=== PATIENT | male | born 1970 | race Caucasian/White ===

== ENCOUNTER → 2021-08-07 09:49 | Outpatient (BNVA) | payer OTHER, SELFPAY | PROVIDERS: PCP Internal Medicine; Visit Provider Psychiatry & Neurology Neurology | DX: G43.909 Migraine, unspecified, not intractable, without status migrainosus (principal); G24.9 Dystonia, unspecified | CPT/HCPCS: 64642; J0585 ==

== ENCOUNTER → 2022-01-17 08:54 | Outpatient (BNVA) | payer OTHER, SELFPAY | PROVIDERS: PCP Family Medicine; Visit Provider Psychiatry & Neurology Neurology | DX: G24.9 Dystonia, unspecified (principal); G43.909 Migraine, unspecified, not intractable, without status migrainosus | CPT/HCPCS: 64642; J0585 ==

== ENCOUNTER → 2022-07-11 15:08 | Outpatient (BNVA) | payer OTHER, SELFPAY | PROVIDERS: PCP Family Medicine; Visit Provider Psychiatry & Neurology Neurology | DX: G43.909 Migraine, unspecified, not intractable, without status migrainosus (principal); G24.9 Dystonia, unspecified | CPT/HCPCS: 64642; J0585 ==

== ENCOUNTER 2022-12-24 10:22 | Outpatient (AMB) | payer OTHER, SELFPAY ==
[2022-12-24 10:25] VITALS: BP 116/72; PULSE 62; O2SAT 99; BMI 23.8
--- NOTE | 2022-12-24 10:25 | A.OFFVIS_ITS ---
Intake Vital Signs 12/24/22 10:25 Height 5 ft 9 in Weight 161 lb BMI 23.8 BP 116/72 Blood Pressure Location Rt brachial Position Sitting Pulse 62 Pulse Source Pulse Oximeter Pulse Oximetry (%) 99 Oxygen Delivery Method Room Air Intake Visit Reasons: Botox-CONFIRMED Intake Note: Pt presents to the office today for a botox injection. Pt states the botox has been helping him. Allergies erythromycin base Allergy (Severe, Verified 12/24/22 10:26) Anaphylaxis Medication List - Last Reconciled 12/24/22 by Jackeline England MD famotidine 20 mg PO DAILY fluticasone propionate 50 mcg/actuation 1 spray intranasal DAILY gabapentin 300 mg PO BEDTIME onabotulinumtoxinA (Botox) 100 units IM [id number] oxybutynin chloride ER 5 mg PO BEDTIME pantoprazole 40 mg PO DAILY sumatriptan succinate 100 mg PO ONCE PRN topiramate 1 tab qam and 2 tabs qhs orally; HPI HPI Comments History of Present Illness Details ? 52y/o male comes for follow up of migraines and treatment of dystonia with botox.He reports increase migraines since his travel to [facility] ??? Side effects including pain , injection site reaction , increased weakness etc were explained in detail. ??? Botulinum toxin type A 100 units C 8265C4 exp was diluted with 2 cc of normal saline . ??? Muscles injected ??? Right brachioradialis 12.5 units ??? Right extensor carpi radialis 37.5 units ??? Right extensor carpi ulnaris 25 units ??? Total used - 75 ??? Discarded- 25 units PFS Surgical History H/O colonoscopy History of cataract surgery Social History Alcohol intake: current Alcohol intake frequency: holidays/special occasions only Patient Tobacco Use Status: Never used Tobacco Physical Exam Vital Signs: Last Vital Signs Pulse 62 12/24/22 10:25 BP 116/72 12/24/22 10:25 Pulse Ox 99 12/24/22 10:25 Oxygen Delivery Method Room Air 12/24/22 10:25 BMI result Body Mass Index 23.8 Const General: cooperative, healthy appearing, comfortable and no acute distress Nutritional Appearance: average body habitus Orientation/consciousness: patient oriented x3 Limitations: no limitations Neuro General: patient oriented x3, gait normal, tone normal, moves all extremities and no focal motor deficits Cranial nerves: Yes Facial sensation intact/muscles of mastication intact, Yes Bilaterally intact EOM present and Yes Normal facial strength present Motor exam (neuro): 5/5 motor strength present throughout Office Procedures Botulinum toxin Injection 33724 - Extr 1-4 Procedure code (CPT) selection complete Office Meds onabotulinumtoxinA 100 unit solution for injection Performing Provider: Jackeline England MD Performing Location: [facility] [place] [facility] Administered by: Jackeline England MD on 12/24/22 11:11 Dose Route Admin Location Dispensed Lot Number Expiration Date [facility] Director Utilization Management 75 unit IM 100 units [id number] 02/20/25 6278-6780-64 [employer]ER[employer]/BOTOX Comments: see hpi Assessment & Plan Assessment & Plan (1) Dystonia: Code(s): G24.9 - Dystonia, unspecified (2) Migraine: Code(s): G43.909 - Migraine, unspecified, not intractable, without status migrainosus Plan Patient tolerated the procedure well He will call with any side effects gabapentin 600mg qhs Orders: Orders AMB Botulinum toxin Injection Today G24.9 - Dystonia, unspecified Coding Level of Care Code Est Pt Level 1 (90139) Diagnoses Dystonia G24.9 Migraine G43.909 CPT Codes Botox Injection - Botox 5: 37220 - Extr 1-4 ([id number])
== END 2022-12-24 10:47 | disposition home or self-care (01) ==
PROVIDERS: Visit Provider Psychiatry & Neurology Neurology
DX: G24.9 Dystonia, unspecified (principal)
CPT/HCPCS: 64642

== ENCOUNTER → 2022-12-24 10:22 | Outpatient (BNVA) | payer OTHER, SELFPAY | PROVIDERS: Visit Provider Psychiatry & Neurology Neurology | DX: G24.8 Other dystonia (principal); G43.909 Migraine, unspecified, not intractable, without status migrainosus | CPT/HCPCS: 64642; 99211; J0585 ==

== ENCOUNTER 2023-06-03 08:33 | Outpatient (AMB) | payer OTHER, SELFPAY ==
--- NOTE | 2023-06-03 08:46 | A.OFFVIS_ITS ---
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 53y/o male comes for follow up of migraines and treatment of dystonia with botox.He reports increase migraines since his travel to [facility] ??? Side effects including pain , injection site reaction , increased weakness etc were explained in detail. ??? Botulinum toxin type A 100 units C 8612C4 exp was diluted with 2 cc of normal saline . ??? Muscles injected ??? Right brachioradialis 12.5 units ??? Right extensor carpi radialis 37.5 units ??? Right extensor carpi ulnaris 25 units ??? Total used - 75 ??? Discarded- 25 units PFSH Surgical History H/O colonoscopy History of cataract surgery Social History Alcohol intake: current Alcohol intake frequency: holidays/special occasions only Patient Tobacco Use Status: Never used Tobacco Physical Exam Vital Signs: Last Vital Signs Pulse 66 06/03/23 08:47 Resp 16 06/03/23 08:47 Pulse Ox 99 06/03/23 08:47 Oxygen Delivery Method Room Air 06/03/23 08:47 Const General: cooperative, healthy appearing, comfortable and no acute distress Nutritional Appearance: average body habitus Orientation/consciousness: patient oriented x3 Limitations: no limitations Neuro General: patient oriented x3, gait normal, tone normal, moves all extremities and no focal motor deficits Cranial nerves: Yes Facial sensation intact/muscles of mastication intact, Yes Bilaterally intact EOM present and Yes Normal facial strength present Motor exam (neuro): 5/5 motor strength present throughout Office Procedures Botulinum toxin Injection 85595 - Extr 1-4 Procedure code (CPT) selection complete Office Meds onabotulinumtoxinA 100 unit solution for injection Performing Provider: Jackeline England MD [place] [facility] [place] [facility] Administered by: Jackeline England MD on 06/03/23 09:12 Dose Route Admin Location Dispensed Lot Number Expiration Date [facility] Spiritual Counselor 75 unit IM 100 units [id number] 06/21/25 5670-6131-52 [employer]ERGAN/BOTOX Comments: see HPI Assessment & Plan Assessment & Plan (1) Dystonia: Code(s): G24.9 - Dystonia, unspecified (2) Migraine: Code(s): G43.909 - Migraine, unspecified, not intractable, without status migrainosus Plan Patient tolerated the procedure well He will call with any side effects gabapentin 600mg qhs suggested magnesium 400mg qhs and riboflavin 400mg qam Orders: Orders AMB Botulinum toxin Injection Today G24.9 - Dystonia, unspecified Coding Level of Care Code Est Pt Level 1 (73224) Diagnoses Dystonia G24.9 Migraine G43.909 CPT Codes Botox Injection - Botox 5: 51773 - Extr 1-4 ([id number])
[2023-06-03 08:47] VITALS: PULSE 66; RESP 16; O2SAT 99
== END 2023-06-03 09:22 | disposition home or self-care (01) ==
PROVIDERS: PCP Family Medicine; Visit Provider Psychiatry & Neurology Neurology
DX: G24.9 Dystonia, unspecified (principal)
CPT/HCPCS: 64642

== ENCOUNTER → 2023-06-03 08:33 | Outpatient (BNVA) | payer OTHER, SELFPAY | PROVIDERS: PCP Family Medicine; Visit Provider Psychiatry & Neurology Neurology | DX: G24.8 Other dystonia (principal); G43.909 Migraine, unspecified, not intractable, without status migrainosus; Z79.899 Other long term (current) drug therapy | CPT/HCPCS: 64642; 99211; J0585 ==

== ENCOUNTER 2023-10-07 08:57 | Outpatient (AMB) | payer OTHER, SELFPAY ==
--- NOTE | 2023-10-07 09:09 | MHC.OFFVIS ---
Vital Signs 10/07/23 09:12 Height 5 ft 9 in Weight 164 lb 4 oz BMI 24.3 BP 120/80 Blood Pressure Location Rt brachial Position Sitting Respiration 15 Pulse 70 Pulse Source Pulse Oximeter Pulse Oximetry (%) 96 Oxygen Delivery Method Room Air Intake Visit Reasons: BOTOX - LVM w/add Intake Note: Pt presents to the office for Botox injections for dystonia. 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 53y/o male comes for follow up of migraines and treatment of dystonia with botox.He reports increase migraines since his travel to [facility] ??? Side effects including pain , injection site reaction , increased weakness etc were explained in detail. ??? Botulinum toxin type A 100 units C 8693C4 exp 08/2025 was diluted with 2 cc of normal saline . ??? Muscles injected ??? Right brachioradialis 12.5 units ??? Right extensor carpi radialis 37.5 units ??? Right extensor carpi ulnaris 25 units ??? Total used - 75 ??? Discarded- 25 units PFSH Surgical History H/O colonoscopy History of cataract surgery Social History Alcohol intake: current Alcohol intake frequency: holidays/special occasions only Patient Tobacco Use Status: Never used Tobacco Physical Exam Vital Signs: Last Vital Signs Pulse 70 10/07/23 09:12 Resp 15 10/07/23 09:12 BP 120/80 10/07/23 09:12 Pulse Ox 96 10/07/23 09:12 Oxygen Delivery Method Room Air 10/07/23 09:12 BMI result Body Mass Index 24.3 Const General: cooperative, healthy appearing, comfortable and no acute distress Nutritional Appearance: average body habitus Orientation/consciousness: patient oriented x3 Limitations: no limitations Neuro General: patient oriented x3, gait normal, tone normal, moves all extremities and no focal motor deficits Cranial nerves: Yes Facial sensation intact/muscles of mastication intact, Yes Bilaterally intact EOM present and Yes Normal facial strength present Motor exam (neuro): 5/5 motor strength present throughout Office Procedures Botulinum toxin Injection 96685 - Dystonia Procedure code (CPT) selection complete Office Meds onabotulinumtoxinA 100 unit solution for injection Performing Provider: Jackeline England MD Performing Location: [facility] [place] [facility] Administered by: Jackeline England MD on 10/07/23 09:27 Dose Route Admin Location Dispensed Lot Number Expiration Date [facility] 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 75 unit IM 100 units [id number] 08/21/25 0983-1903-95 [employer]ERGAN/BOTOX Comments: see HPI Assessment & Plan Assessment & Plan (1) Dystonia: Code(s): G24.9 - Dystonia, unspecified Category: Medical (2) Migraine: Code(s): G43.909 - Migraine, unspecified, not intractable, without status migrainosus Category: Medical Plan Patient tolerated the procedure well He will call with any side effects gabapentin 600mg qhs suggested magnesium 400mg qhs and riboflavin 400mg qam Orders: Orders AMB Botulinum toxin Injection Today G24.9 - Dystonia, unspecified Medications: New onabotulinumtoxinA 100 units IM ONCE 1 ea 0RF dystonia G24.9 - Dystonia, unspecified Coding Level of Care Code Est Pt Level 1 (13265) Diagnoses Dystonia G24.9 Migraine G43.909 CPT Codes Botox Injection - Botox 4: 35058 - Dystonia ([id number])
[2023-10-07 09:12] VITALS: BP 120/80; PULSE 70; RESP 15; O2SAT 96; BMI 24.3
== END 2023-10-07 09:31 | disposition home or self-care (01) ==
PROVIDERS: PCP Family Medicine; Visit Provider Psychiatry & Neurology Neurology
DX: G24.9 Dystonia, unspecified (principal)
CPT/HCPCS: 64616

== ENCOUNTER → 2023-10-07 08:57 | Outpatient (BNVA) | payer OTHER, SELFPAY | PROVIDERS: PCP Family Medicine; Visit Provider Psychiatry & Neurology Neurology | DX: G43.909 Migraine, unspecified, not intractable, without status migrainosus (principal); G24.9 Dystonia, unspecified | CPT/HCPCS: 64616; 99211; J0585 ==

== ENCOUNTER 2024-02-17 09:21 | Outpatient (AMB) | payer OTHER, SELFPAY ==
[2024-02-17 09:22] VITALS: BP 118/88; PULSE 68; O2SAT 100; BMI 25.9
--- NOTE | 2024-02-17 09:22 | A.OFFVIS_ITS ---
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 53y/o male comes for follow up of migraines and focal dystonia 12 days after his botox injection he noticed swelling , weakness, numbness ingling in his right hand. 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 EMG confirmed and he was reffered to OT which has helped significantly. he is able to type now . He hopper snot want to continue botox for now though he had a good response - but wants something to help his motor coordination. ??? Side effects including pain , injection site reaction , increased weakness etc were explained in detail. [facility] Surgical History H/O colonoscopy History of cataract surgery Social History Alcohol intake: current Alcohol intake frequency: holidays/special occasions only Patient Tobacco Use Status: Never used Tobacco Physical Exam Vital Signs: Last Vital Signs Pulse 68 02/17/24 09:22 BP 118/88 02/17/24 09:22 Pulse Ox 100 02/17/24 09:22 Oxygen Delivery Method Room Air 02/17/24 09:22 BMI result Body Mass Index 25.9 Const Orientation/consciousness: patient oriented x3 Eyes Pupils: Equal, round and reactive pupils present Neuro Other: Right wrist - weakness of extension right thumb abduction, extension weaker General: patient oriented x3, gait normal, tone normal and moves all extremities Cranial nerves: Yes Equal, round and reactive pupils present, Yes Bilaterally intact EOM present, Yes Nystagmus not present, Yes Normal facial strength present and Yes Midline tongue present Cognition (Neuro): normal cognition Gait exam (Neuro): Normal gait present Motor exam (neuro): Normal motor muscle tone present throughout Deep tendon reflexes (DTR's): Right triceps reflex intensity grade: 1+, Left triceps reflex intensity grade: 1+, Rt Biceps (C5, C6): 1+, Left biceps reflex intensity grade: 1+, Right brachioradialis reflex intensity grade: 1+, Left brachioradialis reflex intensity grade: 1+, Right patellar reflex intensity grade: 1+ and Left patellar reflex intensity grade: 1+ Assessment & Plan Assessment & Plan (1) Dystonia: Comment: right focal dystonia Code(s): G24.9 - Dystonia, unspecified Category: Medical (2) Migraine: Code(s): G43.909 - Migraine, unspecified, not intractable, without status migrainosus Category: Medical Qualifiers: Migraine type: unspecified Status migrainosus presence: without status migrainosus Intractability: not intractable Qualified Code(s): G43.909 - Migraine, unspecified, not intractable, without status migrainosus Plan He does not want to restart Botox I will trial him on cyclobenzaprine 5mg qhs Propranolol 10 mg tid as needed Medications: New cyclobenzaprine 5 mg PO BEDTIME 30 tabs 6RF propranolol 10 mg PO TID PRN 90 tabs 6RF tremors Coding Level of Care Code Est Pt Level 4 (22985) Complex EM visit Add On G2211 Diagnoses Dystonia G24.9 Migraine without status migrainosus, not intractable, unspecified migraine type G43.909 Migraine type: unspecified Status migrainosus presence: without status migrainosus Intractability: not intractable
== END 2024-02-17 09:58 | disposition home or self-care (01) ==
PROVIDERS: PCP Family Medicine; Visit Provider Psychiatry & Neurology Neurology
DX: G24.9 Dystonia, unspecified (principal); G43.909 Migraine, unspecified, not intractable, without status migrainosus
CPT/HCPCS: 99214

== ENCOUNTER → 2024-02-17 09:21 | Outpatient (BNVA) | payer OTHER, SELFPAY | PROVIDERS: PCP Family Medicine; Visit Provider Psychiatry & Neurology Neurology | DX: G24.9 Dystonia, unspecified (principal); G43.909 Migraine, unspecified, not intractable, without status migrainosus ==

== ENCOUNTER 2024-07-06 07:33 | Outpatient (AMB) | payer OTHER, SELFPAY ==
--- NOTE | 2024-07-06 07:33 | A.OFFVIS_ITS ---
Intake Visit Reasons: follow up-LVM Intake Note: patient following up for migraines and med trial cyclobenzaprine and propranolol Allergies erythromycin base Allergy (Severe, Verified 07/06/24 07:34) Anaphylaxis Medication List - Last Reconciled 07/06/24 by Jackeline England MD cyclobenzaprine 10 mg (2 x 5 mg) PO BEDTIME famotidine 20 mg PO DAILY fluticasone propionate 50 mcg/actuation 1 spray intranasal DAILY gabapentin 300 mg PO BEDTIME gabapentin 100 mg PO TID PRN oxybutynin chloride ER 5 mg PO BEDTIME pantoprazole 40 mg PO DAILY propranolol 10 mg PO TID PRN sumatriptan succinate 100 mg PO ONCE PRN 30 days MDD 2 tabs topiramate 1 tab qam and 2 tabs qhs orally; HPI Comments Details: ? 54y/o male calls for follow up of migraines and focal dystonia .He still reports pain in his forearm but is able to work. His mood is better. 5 months ago -12 days after his botox injection he noticed swelling , weakness, numbness tingling in his right hand. 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 EMG confirmed and he was referred to OT which has helped significantly. he is able to type now . He does not want to continue botox for now though he had a good response - but wants something to help his motor coordination. ??? Side effects including pain , injection site reaction , increased weakness etc were explained in detail. [facility] [place] Surgical History H/O colonoscopy History of cataract surgery Social History Alcohol intake: current Alcohol intake frequency: holidays/special occasions only Patient Tobacco Use Status: Never used Tobacco Physical Exam Const Orientation/consciousness: patient oriented x3 Neuro General: patient oriented x3 Cognition (Neuro): normal cognition Telehealth Telehealth Telehealth Platform: Telephone Location of provider rendering services: practice address Location of patient: address on file Patient Identification confirmed using: Name, : Yes Telehealth method: voice only Patient verbally consented to treatment: Yes Patient verbally consented to billing insurance company: Yes Patient informed of any privacy concerns related to visit: Yes Minutes spent on Phone/Video with Pt.: 18 Assessment & Plan Assessment & Plan (1) Dystonia: Comment: right focal dystonia Code(s): G24.9 - Dystonia, unspecified Category: Medical (2) Migraine: Code(s): G43.909 - Migraine, unspecified, not intractable, without status migrainosus Category: Medical Qualifiers: Migraine type: unspecified Status migrainosus presence: without status migrainosus Intractability: not intractable Qualified Code(s): G43.909 - Migraine, unspecified, not intractable, without status migrainosus Plan He does not want to restart Botox Increase cyclobenzaprine 5-10mg qhs Propranolol 10 mg tid Increase gabapentin 300mg qhs and 100mg tid as needed Medications: New gabapentin as needed muscle spasm 100 mg PO TID PRN 90 caps 6RF pain Changed From cyclobenzaprine 5 mg PO BEDTIME 30 tabs 6RF To cyclobenzaprine 10 mg (2 x 5 mg) PO BEDTIME 60 tabs 6RF Refilled gabapentin 300 mg PO BEDTIME 30 caps 6RF Coding Level of Care Code Tele Est Pt Level 4 (57998) Diagnoses Dystonia G24.9 Migraine without status migrainosus, not intractable, unspecified migraine type G43.909 Migraine type: unspecified Status migrainosus presence: without status migrainosus Intractability: not intractable Time Spent (min) 20
--- OUTSIDE RECORDS SUMMARY | 2024-07-06 07:36 | XMS_ITS | Data Portability ---
Author Organization [facility], [facility] Address [address] [place] [address] Care Team Providers Care Fire Medic Name Role Phone FRANSISCO SOSA OTHER RIKI KOROMA Primary Care Provider [phone] Assessment Encounter Date Assessment Date Assessment LastModified by Organization Details LastModified Time 01/14/2024 01/14/2024 Plan: 1-2 x/week for 12 weeks. OT visit # 3 A: Pt is a 53 year old referred to outpatient occupational therapy by Dr. Myers/MISAEL Campos with signs and symptoms consistent with: R radial nerve palsy Significant increase in MMT and hog sawyer/pinch strengths since last OT visit. EMG results show mixed nerve compression. Minimal use of splint, advised vigerous strength training RUE Functional limitations include: limited functional use R hand due to nerve palsy Response to treatment: good rehab potential Skilled OT is reasonable and indicated to address exam findings and maximize safe painfree level of function Goals: STG/LTG Time to Achieve Goal Progress per IE Comment STG 4 weeks Increase MMT by 1/4 grade RUE extensors new STG 4 weeks Increase R hog sawyer by 5-10 lb new STG 4 weeks Smooth grasp/release with various items 25x w/o fatigue new LTG 8 weeks new LTG 8 weeks new LTG 8 weeks Independent in comprehensive HEP. new Treatments may include (as appropriate/as indicated): Therapeutic exercise/Neuromusc ular Reeducation/Therap eutic Activities/ROM, flexibility, endurance, power, functional mechanics/postures /activities; coordination/motor planning/motor control; balance; proprioception; stability; self care/ADL management; home exercise instruction; modalities; taping; orthotics/splint fabrication/traini ng/management Not available 01/20/2024 10:37:59 01/21/2024 01/21/2024 Plan: 1-2 x/week for 12 weeks. OT visit # 4 A: Pt is a 53 year old referred to outpatient occupational therapy by Dr. Myers/MISAEL Campos with signs and symptoms consistent with: R radial nerve palsy Working on vigorous RUE strengthening with putty, weights, and combination motions. Minimal use of splint, only if wrist becomes fatigued. No c/o pain. Discussed possibility of gym membership after d/c from OT Functional limitations include: limited functional use R hand due to nerve palsy Response to treatment: good rehab potential Skilled OT is reasonable and indicated to address exam findings and maximize safe painfree level of function Goals: STG/LTG Time to Achieve Goal Progress per IE Comment STG 4 weeks Increase MMT by 1/4 grade RUE extensors new STG 4 weeks Increase R hog sawyer by 5-10 lb new STG 4 weeks Smooth grasp/release with various items 25x w/o fatigue new LTG 8 weeks new LTG 8 weeks new LTG 8 weeks Independent in comprehensive HEP. new Treatments may include (as appropriate/as indicated): Therapeutic exercise/Neuromusc ular Reeducation/Therap eutic Activities/ROM, flexibility, endurance, power, functional mechanics/postures /activities; coordination/motor planning/motor control; balance; proprioception; stability; self care/ADL management; home exercise instruction; modalities; taping; orthotics/splint fabrication/traini ng/management Not available 01/21/2024 16:10:35 01/28/2024 01/28/2024 Plan: 1-2 x/week for 12 weeks. OT visit # 5 A: Pt is a 53 year old referred to outpatient occupational therapy by Dr. Myers/MISAEL Campos with signs and symptoms consistent with: R radial nerve palsy 9 hole peg test R: 28.5 L: 19.48. Added fine motor coordination program to HEP in addition to strength training, verbal and written instructions given. Making steady progress in OT. Using red putty, red bands for strength training. Minimal use of splint, only if wrist becomes fatigued. Discussed possibility of gym membership after d/c from OT Functional limitations include: limited functional use R hand due to nerve palsy Response to treatment: good rehab potential Skilled OT is reasonable and indicated to address exam findings and maximize safe painfree level of function Goals: STG/LTG Time to Achieve Goal Progress per IE Comment STG 4 weeks Increase MMT by 1/4 grade RUE extensors new STG 4 weeks Increase R hog sawyer by 5-10 lb new STG 4 weeks Smooth grasp/release with various items 25x w/o fatigue new LTG 8 weeks new LTG 8 weeks new LTG 8 weeks Independent in comprehensive HEP. new Treatments may include (as appropriate/as indicated): Therapeutic exercise/Neuromusc ular Reeducation/Therap eutic Activities/ROM, flexibility, endurance, power, functional mechanics/postures /activities; coordination/motor planning/motor control; balance; proprioception; stability; self care/ADL management; home exercise instruction; modalities; taping; orthotics/splint fabrication/traini ng/management Not available 01/28/2024 10:06:12 02/08/2024 02/08/2024 Plan: 1-2 x/week for 12 weeks. OT visit # 5 A: Pt is a 53 year old referred to outpatient occupational therapy by Dr. Myers/MISAEL Campos with signs and symptoms consistent with: R radial nerve palsy Reports 95% return of function RUE. Returning to work within next couple of weeks. Working on adapting hog sawyer positions while holding pen. Significant improvement on standardized coordination test- 9 hole peg test results: R: 28.5- 19. 48 L: 19.48. Working on fine motor coordination program to HEP in addition to vigerous strengthening program. Upgraded to nic therabanjosh for wrist/FA/Elbow strengthening; rev'd program in clinic. Functional limitations include: limited functional use R hand due to nerve palsy Response to treatment: good rehab potential Skilled OT is reasonable and indicated to address exam findings and maximize safe painfree level of function Goals: STG/LTG Time to Achieve Goal Progress per IE Comment STG 4 weeks Increase MMT by 1/4 grade RUE extensors new STG 4 weeks Increase R hog sawyer by 5-10 lb new STG 4 weeks Smooth grasp/release with various items 25x w/o fatigue new LTG 8 weeks new LTG 8 weeks new LTG 8 weeks Independent in comprehensive HEP. new Treatments may include (as appropriate/as indicated): Therapeutic exercise/Neuromusc ular Reeducation/Therap eutic Activities/ROM, flexibility, endurance, power, functional mechanics/postures /activities; coordination/motor planning/motor control; balance; proprioception; stability; self care/ADL management; home exercise instruction; modalities; taping; orthotics/splint fabrication/traini ng/management alem Not available 02/08/2024 13:25:03 06/22/2024 06/22/2024 Patient agreed t o this visit via a secure telehealth platform. Patient understands this is a scheduled visit and the usual procedures with regard to billing and confidentiality apply. Patient was notified that the provider location is [facility] [place] [facility] Patient location: home During the visit the patient? s medical history and medical record were reviewed. The patient was notified to call our office for worsening or urgent symptoms. [email or web address] Not available 06/22/2024 09:11:50 Plan of Treatment Reminders Order Date Submit Date Provider Last Modified By Organization Details Last Modified Time Details Appointments None recorded. Lab PSA, serum or plasma 2024 025 [facility], [address] [place], [address], 16:47:05 Referral sleep medicine referral 2024 025 [email or web address] Sleep Medicine Services [facility], [address], [facility] [address], [place], [address], 10:39:14 Procedures None recorded. Surgeries None recorded. Imaging None recorded. Medication Orders None recorded. Patient TargetsNo targets recorded. Patient Instructions Encounter Date Encounter Id Patient Instructions Last Modified By Organization Details Last Modified Time 01/14/2024 [id number] Access Code: [email or web address] URL: [email or web address] Date: 11/17/2023 Prepared by: Francie West Exercises - Wrist AROM Flexion Extension - 1 x daily - 7 x weekly - 3 sets - 10 reps - Wrist AROM Radial Ulnar Deviation - 1 x daily - 7 x weekly - 3 sets - 10 reps - Seated Forearm Pronation and Supination AROM - 1 x daily - 7 x weekly - 3 sets - 10 reps - Seated Thumb Extension - 1 x daily - 7 x weekly - 3 sets - 10 reps - Thumb Abduction AROM on Table - 1 x daily - 7 x weekly - 3 sets - 10 reps - Thumb Radial Adduction with Thumb Flexion AROM on Table - 1 x daily - 7 x weekly - 3 sets - 10 reps - Seated Finger MP Extension AROM with Blocking - 1 x daily - 7 x weekly - 3 sets - 10 repsAccess Code: [email or web address] URL: [email or web address] Date: 12/10/2023 Prepared by: Francie West Exercises - Seated Wrist Extension with Dumbbell - 1 x daily - 7 x weekly - 3 sets - 10 reps - Forearm Supination and Pronation with Dumbbell - 1 x daily - 7 x weekly - 3 sets - 10 reps - Seated Single Arm Overhead Elbow Extension with Dumbbell - 1 x daily - 7 x weekly - 3 sets - 10 reps [email or web address] Not available 01/14/2024 15:34:04 01/21/2024 [id number] Access Code: [email or web address] URL: [email or web address] Date: 11/17/2023 Prepared by: Francie West Exercises - Wrist AROM Flexion Extension - 1 x daily - 7 x weekly - 3 sets - 10 reps - Wrist AROM Radial Ulnar Deviation - 1 x daily - 7 x weekly - 3 sets - 10 reps - Seated Forearm Pronation and Supination AROM - 1 x daily - 7 x weekly - 3 sets - 10 reps - Seated Thumb Extension - 1 x daily - 7 x weekly - 3 sets - 10 reps - Thumb Abduction AROM on Table - 1 x daily - 7 x weekly - 3 sets - 10 reps - Thumb Radial Adduction with Thumb Flexion AROM on Table - 1 x daily - 7 x weekly - 3 sets - 10 reps - Seated Finger MP Extension AROM with Blocking - 1 x daily - 7 x weekly - 3 sets - 10 repsAccess Code: [email or web address] URL: [email or web address] Date: 12/10/2023 Prepared by: Francie West Exercises - Seated Wrist Extension with Dumbbell - 1 x daily - 7 x weekly - 3 sets - 10 reps - Forearm Supination and Pronation with Dumbbell - 1 x daily - 7 x weekly - 3 sets - 10 reps - Seated Single Arm Overhead Elbow Extension with Dumbbell - 1 x daily - 7 x weekly - 3 sets - 10 reps Not available 01/20/2024 20:56:07 01/28/2024 [id number] Access Code: [email or web address] URL: [email or web address] Date: 11/17/2023 Prepared by: Francie West Exercises - Wrist AROM Flexion Extension - 1 x daily - 7 x weekly - 3 sets - 10 reps - Wrist AROM Radial Ulnar Deviation - 1 x daily - 7 x weekly - 3 sets - 10 reps - Seated Forearm Pronation and Supination AROM - 1 x daily - 7 x weekly - 3 sets - 10 reps - Seated Thumb Extension - 1 x daily - 7 x weekly - 3 sets - 10 reps - Thumb Abduction AROM on Table - 1 x daily - 7 x weekly - 3 sets - 10 reps - Thumb Radial Adduction with Thumb Flexion AROM on Table - 1 x daily - 7 x weekly - 3 sets - 10 reps - Seated Finger MP Extension AROM with Blocking - 1 x daily - 7 x weekly - 3 sets - 10 repsAccess Code: [email or web address] URL: [email or web address] Date: 12/10/2023 Prepared by: Francie Ianahomy Exercises - Seated Wrist Extension with Dumbbell - 1 x daily - 7 x weekly - 3 sets - 10 reps - Forearm Supination and Pronation with Dumbbell - 1 x daily - 7 x weekly - 3 sets - 10 reps - Seated Single Arm Overhead Elbow Extension with Dumbbell - 1 x daily - 7 x weekly - 3 sets - 10 reps Not available 01/28/2024 09:36:40 02/08/2024 [id number] Access Code: [email or web address] URL: [email or web address] Date: 11/17/2023 Prepared by: Francie Iadonniei Exercises - Wrist AROM Flexion Extension - 1 x daily - 7 x weekly - 3 sets - 10 reps - Wrist AROM Radial Ulnar Deviation - 1 x daily - 7 x weekly - 3 sets - 10 reps - Seated Forearm Pronation and Supination AROM - 1 x daily - 7 x weekly - 3 sets - 10 reps - Seated Thumb Extension - 1 x daily - 7 x weekly - 3 sets - 10 reps - Thumb Abduction AROM on Table - 1 x daily - 7 x weekly - 3 sets - 10 reps - Thumb Radial Adduction with Thumb Flexion AROM on Table - 1 x daily - 7 x weekly - 3 sets - 10 reps - Seated Finger MP Extension AROM with Blocking - 1 x daily - 7 x weekly - 3 sets - 10 repsAccess Code: [email or web address] URL: [email or web address] Date: 12/10/2023 Prepared by: Francie West Exercises - Seated Wrist Extension with Dumbbell - 1 x daily - 7 x weekly - 3 sets - 10 reps - Forearm Supination and Pronation with Dumbbell - 1 x daily - 7 x weekly - 3 sets - 10 reps - Seated Single Arm Overhead Elbow Extension with Dumbbell - 1 x daily - 7 x weekly - 3 sets - 10 reps Access Code: [email or web address] URL: [email or web address] Date: 02/08/2024 Prepared by: Francie West Exercises - Seated Wrist Extension with Anchored Resistance - 1 x daily - 7 x weekly - 3 sets - 10 reps - Seated Wrist Flexion with Anchored Resistance - 1 x daily - 7 x weekly - 3 sets - 10 reps - Seated Wrist Radial Deviation with Anchored Resistance - 1 x daily - 7 x weekly - 3 sets - 10 reps - Forearm Supination with Resistance - 1 x daily - 7 x weekly - 3 sets - 10 reps - Seated Elbow Flexion with Resistance - 1 x daily - 7 x weekly - 3 sets - 10 reps - Seated Elbow Extension with Self-Anchored Resistance - 1 x daily - 7 x weekly - 3 sets - 10 reps alem Not available 02/08/2024 13:16:30 06/22/2024 [id number] - Per our discussion you have agreed with the above assessment/plan as stated. - Please follow-up with our office as recommended and perform lab work/imaging/refe rral if indicated. - You can follow-up with our office sooner for any acute concern at [phone]. - If unable to reach our practice and you are in need of immediate care do not hesitate to seek immediate medical attention by calling 911 or going to the ER/Urgent care. - All questions answered. [email or web address] Not available 06/22/2024 09:14:53 Reason for Referral Sleep Medicine Referral for Snoring Referring Physician: Riki Koroma, Family Medicine, Encounter Date: 06/22/2024 Results Created Date Observation Date Name Description Value Unit Range Abnormal Flag Note LastModifiedBy Organization Detail LastModifiedTime 06/30/1906/29/2024 CBC WBC 6.07 K/? ? ?L 4.23-9 .07 Not Available [address], [address], 06/29/2024 12:42:47 06/30/1906/29/2024 CBC RBC 4.60 M/? ? ?L 4.63-6 .08 low Not Available [address], [address], 06/29/2024 12:42:47 06/30/1906/29/2024 CBC HGB 14.4 g/dL 13.7-1 7.5 Not Available [address], [address], 06/29/2024 12:42:47 06/30/1906/29/2024 CBC HCT 42.0 % 40.1-5 1.0 Not Available [address], [address], 06/29/2024 12:42:47 06/30/1906/29/2024 CBC MCV 91.3 fL 79.0-9 2.2 Not Available [address], [address], 06/29/2024 12:42:47 06/30/1906/29/2024 CBC MCH 31.3 pg 25.7-3 2.2 Not Available [address], [address], 06/29/2024 12:42:47 06/30/1906/29/2024 CBC MCHC 34.3 g/dL 32.3-3 6.5 Not Available [address], [address], 06/29/2024 12:42:47 06/30/1906/29/2024 CBC plt 110 K/? ? ?L 163-33 7 low Not Available [address], [address], 06/29/2024 12:42:47 06/30/1906/29/2024 CBC MPV 11.9 fL 9.4-12 .4 Not Available [address], [address], 06/29/2024 12:42:47 06/30/1906/29/2024 CBC neut% 63.8 % 34.0-6 7.9 Not Available [address], [address], 06/29/2024 12:42:47 06/30/1906/29/2024 CBC neut# 3.87 1.78-5 .38 Not Available [address], [address], 06/29/2024 12:42:47 06/30/1906/29/2024 CBC lymph % 21.7 % 21.8-5 3.1 low Not Available [address], [address], 06/29/2024 12:42:47 06/30/1906/29/2024 CBC lymph # 1.32 K/? ? ?L 1.32-3 .57 Not Available [address], [address], 06/29/2024 12:42:47 06/30/1906/29/2024 CBC mono% 10.2 % 5.3-12 .2 Not Available [address], [address], 06/29/2024 12:42:47 06/30/19 25 06/29/2024 CBC mono# 0.62 0.30-0 .82 Not Available [address], [address], 06/29/2024 12:42:47 06/30/1906/29/2024 CBC eo% 3.0 % 0.8-7. 0 Not Available [address], [address], 06/29/2024 12:42:47 06/30/1906/29/2024 CBC eo# 0.18 0.04-0 .54 Not Available [address], [address], 06/29/2024 12:42:47 06/30/1906/29/2024 CBC baso% 0.5 % 0.2-1. 2 Not Available [address], [address], 06/29/2024 12:42:47 06/30/1906/29/2024 CBC baso# 0.03 0.00-0 .08 Not Available [address], [address], 06/29/2024 12:42:47 06/30/1906/29/2024 CBC RDW-CV 12.4 % 11.6-1 4.4 Not Available [address], [address], 06/29/2024 12:42:47 06/30/1906/29/2024 CBC Ig% 0.800 % 0.000- 1.500 Ig % >0.5 Indic ates possi ble Left Shift Not Available [address], [address], 06/29/2024 12:42:47 06/30/1906/29/2024 CBC Ig# 0.050 0.000- 0.093 Not Available [address], [address], 06/29/2024 12:42:47 06/30/1906/29/2024 CBC NRBC% 0.0 % 0.0-0. 2 Not Available [address], [address], 06/29/2024 12:42:47 06/30/1906/29/2024 CBC NRBC# 0.000 0.000- 0.012 Not Available [address], [address], 06/29/2024 12:42:47 06/30/1906/29/2024 PSA PSA 0.90 NG/mL 0.00-4 .00 Not Available [address], [address], 06/29/2024 16:47:04 06/30/1906/30/2024 COMP. METAB OLIC PANEL glucose 82 mg/dL 70-100 LIPS= Speci men Sligh tly Lipem ic. Chem Resul ts may be effec fiona. Not Available [address], [address], 06/30/2024 11:44:32 06/30/1906/30/2024 COMP. METAB OLIC PANEL BUN 12 mg/dL 7-18 Not Available [address], [address], 06/30/2024 11:44:32 06/30/19 25 06/30/2024 COMP. METAB OLIC PANEL creatinine 1.0 mg/dL 0.8-1. 3 Not Available [address], [address], 06/30/2024 11:44:32 06/30/19 25 06/30/2024 COMP. METAB OLIC PANEL B/C 12.0 ratio Not Available [address], [address], 06/30/2024 11:44:32 06/30/19 25 06/30/2024 COMP. METAB OLIC PANEL GFR >=60ML /MIN mL/mi n normal >=60m L/min - Holli l or midly reduc ed <60mL /min- Decre ased kidne y funct ion <15mL /min - Kidne y failu re [facility] calcu lates estim ated Glome rular Filtr ation Rate (eGFR ) using the Chron ic Kidne y Disea se Epide miolo gy Colla borat ion (CKD- EPI) Equat ion (Mervat r et. al 2020) as recom wojciech d by the Natio nal Kidne y Found ation . eGFR is based on age, serum creat inine , and sex. CKD-E PI does not calcu late eGFR by race, does not apply to child nicole (age <18 years ), and shoul d not be used in pregn eryn. Not Available [address], [address], 06/30/2024 11:44:32 06/30/19 25 06/30/2024 COMP. METAB OLIC PANEL sodium 142 mmol/ L 136-14 5 Not Available [address], [address], 06/30/2024 11:44:32 06/30/19 25 06/30/2024 COMP. METAB OLIC PANEL potassium 4.3 mmol/ L 3.5-5. 1 Not Available [address], [address], 06/30/2024 11:44:32 06/30/19 25 06/30/2024 COMP. METAB OLIC PANEL chloride 106 mmol/ L 96-107 Not Available [address], [address], 06/30/2024 11:44:32 06/30/19 25 06/30/2024 COMP. METAB OLIC PANEL anion gap 6.4 5.0-15 .0 Not Available [address], [address], 06/30/2024 11:44:32 06/30/19 25 06/30/2024 COMP. METAB OLIC PANEL CO2 30 mmol/ L 21-32 Not Available [address], [address], 06/30/2024 11:44:32 06/30/19 25 06/30/2024 COMP. METAB OLIC PANEL calcium 9.3 mg/dL 8.5-10 .3 Not Available [address], [address], 06/30/2024 11:44:32 06/30/19 25 06/30/2024 COMP. METAB OLIC PANEL total protein 7.0 g/dL 6.4-8. 2 Not Available [address], [address], 06/30/2024 11:44:32 06/30/19 25 06/30/2024 COMP. METAB OLIC PANEL albumin 4.2 g/dL 3.4-5. 0 Not Available [address], [address], 06/30/2024 11:44:32 06/30/19 25 06/30/2024 COMP. METAB OLIC PANEL globulin 2.8 g/dL Not Available [address], [address], 06/30/2024 11:44:32 06/30/19 25 06/30/2024 COMP. METAB OLIC PANEL A/G 1.5 ratio 0.8-2. 0 Not Available [address], [address], 06/30/2024 11:44:32 06/30/19 25 06/30/2024 COMP. METAB OLIC PANEL total bilirubin 0.60 mg/dL 0.00-1 .00 Not Available [address], [address], 06/30/2024 11:44:32 06/30/19 25 06/30/2024 COMP. METAB OLIC PANEL AST 23 U/L 0-37 Not Available [address], [address], 06/30/2024 11:44:32 06/30/19 25 06/30/2024 COMP. METAB OLIC PANEL ALT 46 U/L 6-63 Not Available [address], [address], 06/30/2024 11:44:32 06/30/19 25 06/30/2024 COMP. METAB OLIC PANEL alk. phos. 85 U/L 50-136 Not Available [address], [address], 06/30/2024 11:44:32 Result Notes None recorded. 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 Active 2017 Not Available [facility] 0 12:27:20 Splenomega ly 10039362 Active 2019 CT 04/11 19.2 cm Not Available [facility] 0 12:27:20 Kidney stone 57443009 Active 2019 CT 04/11 Right 0.3 cm stone Not Available [facility] 0 12:27:20 Sands's esophagus 968745798 Active 2019 Not Available [facility] 0 12:27:20 Thrombocyt openic disorder 086268199 Active 2022 FENG Bailey MD [address] [place] [address], [address] , [facility] 3 19:32:08 Hiatal hernia 62125722 Active 2024 Riki Koroma PA-C [address] [place] [address], [address] , [facility] 5 12:25:18 Diverticul osis of colon 308416050 Active 2024 Riki Koroma PA-C [address] [place] [address], [address] , [facility] 5 12:25:29 Overactive urinary bladder 084519480 Active 2024 Riki Koroma PA-C [address] [place] [address], [address] , [facility] 5 09:18:24 Carbuncle of leg (excluding foot) 124463889 Completed 200611/06/2009 Riki Smith MD [address] [place] [address], [address] , [facility] 6 15:40:16 Mixed hyperlipid emia 530898285 Completed 200608/04/2012 Riki Smith MD [address] [place] [address], [address] , [facility] 6 15:40:15 Headache 38760100 Completed 200611/06/2009 Riki Smith MD [address] [place] [address], [address] , [facility] 6 15:40:16 Dyspnea 609479538 Completed 200711/06/2009 Riki Smith MD [address] [place] [address], [address] , [facility] 6 15:40:16 Cough 43922974 Completed 200611/06/2009 Riki Smith MD [address] [place] [address], [address] , [facility] 6 15:40:16 Migraine without aura 17103436 Active 2006 Not Available [facility] 0 12:27:20 Acute pharyngiti s 187288425 Completed 200811/06/2009 Riki Smith MD [address] [place] [address], [address] , [facility] 6 15:40:15 Impacted brandiumen 65989689 Completed 200611/06/2009 Riki Smith MD [address] [place] [address], [address] , [facility] 6 15:40:15 Acute suppurativ e otitis media without spontaneou s rupture of ear drum 24425250 Completed 200611/06/2009 Riki Smith MD [address] [place] [address], [address] , [facility] 6 15:40:15 Acute swimmer's ear Completed 200611/06/2009 Riki Smith MD [address] [place] [address], [address] , [facility] 6 15:40:15 Pneumonia 843861118 Completed 200711/06/2009 Riki Smith MD [address] [place] [address], [address] , [facility] 6 15:40:16 Common cold 75734424 Completed 200611/06/2009 Riki Smith MD [address] [place] [address], [address] , [facility] 6 15:40:15 Nonvenomou s insect bite of multiple sites 645237744 Completed 200711/06/2009 Riki Smith MD [address] [place] [address], [address] , [facility] 6 15:40:16 Allergic rhinitis caused by pollen 86498559 Active 2007 Not Available [facility] 0 12:27:20 Herpes zoster 0288923 Completed 200611/06/2009 Riki Smith MD [address] [place] [address], [address] , [facility] 6 15:40:15 Dysfunctio n of eustachian tube 87556638 Completed 200611/06/2009 Riki Smith MD [address] [place] [address], [address] , [facility] 6 15:40:15 Acute maxillary sinusitis 04412924 Completed 200511/06/2009 Riki Smith MD [address] [place] [address], [address] , [facility] 6 15:40:15 Infective otitis externa 13479058 Completed 01/30/2010 Riki Smith MD [address] [place] [address], [address] , [facility] 6 15:40:15 Acute bronchitis 67632187 Completed 200611/06/2009 Riki Smith MD [address] [place] [address], [address] , [facility] 6 15:40:15 Streptococ bobbi sore throat 04600101 Completed 11/06/2009 Riki Smith MD [address] [place] [address], [phone] , [facility] 6 15:40:15 Problem Notes None recorded. Procedures Surgical History Date Name Laterality Status Provider Name and Address Organization Details Recorded Time 02/25/20 49886: Therapeutic Exercise cancelled Francie West OTR/L, CHT [address] [place] [address], [phone], [facility] 02/24/2024 17:47:44 02/25/20 24 50729: Therapeutic Activities - Direct 1:1 cancelled Francie West OTR/L, CHT [address] [place], [address], [facility] 02/24/2024 17:47:44 02/08/20 24 29509: Therapeutic Exercise completed Francie West, OTR/L, CHT [address] [place], [address], [facility] 02/08/2024 12:29:58 02/08/20 24 34351: Therapeutic Activities - Direct 1:1 completed Francie Iannitelli, OTR/L, CHT [address] [place], [address], [facility] 02/08/2024 12:29:58 01/28/20 86301: Therapeutic Exercise completed Francie Iannitelli, OTR/L, CHT [address] [place], [address], [facility] 01/28/2024 10:05:23 01/28/20 62138: Therapeutic Activities - Direct 1:1 completed Francie Iannitelli, OTR/L, CHT [address] [place], [address], [facility] 01/28/2024 10:05:50 01/21/20 61871: Therapeutic Exercise completed Francie Iannitelli, OTR/L, CHT [address] [place], [address], [facility] 01/21/2024 16:12:38 01/14/20 33315: Therapeutic Exercise completed Francie Iannitelli, OTR/L, CHT [address] [place], [address], [facility] 01/14/2024 15:34:04 01/14/20 74070: Manual Therapy completed Francie Iannitelli, OTR/L, CHT [address] [place], [address], [facility] 01/14/2024 15:34:04 12/17/19 21962: Therapeutic Exercise completed Francie Iannitelli, OTR/L, CHT [address] [place], [address], [facility] 12/17/2023 12:37:33 12/17/19 50650: Manual Therapy completed Francie Iannitelli, OTR/L, CHT [address] [place], [address], [facility] 12/17/2023 12:37:33 12/10/19 99478: Therapeutic Exercise completed Francie Iannitelli, OTR/L, CHT [address] [place], [address], [facility] 12/09/2023 21:56:36 12/10/19 24 51501: Manual Therapy completed Francie West, OTR/L, CHT [address] [place], [address], [facility] 12/09/2023 21:56:40 11/17/19 24 Smoking Cessation Counselling completed Francie West OTR/L, CHT [address] [place], [address], [facility] 11/16/2023 21:23:34 11/17/19 24 Physical Activity Counselling completed Francie West OTR/L, CHT [address] [place], [address], [facility] 11/16/2023 21:23:34 11/17/19 24 16726: OT Eval, Low Complexity completed Francie West OTR/L, CHT [address] [place], [address], [facility] 11/16/2023 21:23:34 07/18/19 21 prevention-card iovascular risk reduction counseling completed Izabela Menard LPN [facility] 07/12/2020 16:02:11 07/18/19 21 prevention-michael al alcohol misuse screening completed Izabela Menard LPN [facility] 07/12/2020 16:02:11 04/20/19 20 prevention-card iovascular risk reduction counseling completed [facility] 04/20/2019 07:59:16 04/20/19 20 prevention-michael al alcohol misuse screening completed [facility] 04/20/2019 07:59:16 06/12/19 17 Cerumen Removal - Irrigation/Lava ge completed Radha Guerrero MD [address] [place] [address], [phone], [facility] 06/11/2016 16:38:34 05/30/19 16 [place] Sleepiness Scale completed Shanelle Verma NP [address] [place] [address], [address], [facility] 05/30/2015 15:30:42 Cataract Surgery completed Not Available [facility] 02/06/2011 06:06:16 Imaging Results None recorded. Procedure Notes None recorded. Medical Equipment None Reported. Allergies Allergen ID Allergen Name Allergen Category Reaction Reaction Severity Criticality Documentation Date Start Date Code Code System Note Provider Name and Address Organization Details Recorded Time 19088 erythromy annie medicatio n anaphylax is Not available Not available 01/11/2010 4053 RxNorm Not Available [facility] 1 06:05:41 Medications Name Sig Start Date Stop Date Status Note LastModified by Organization Details LastModified Time gabapenti n 600 mg tablet Take 1 tablet twice a day by oral route. active Not Available Not Available No t Available propranol ol 80 mg tablet active 1 tab daily Not Available Not Available Not Available oxybutyni n chloride ER 10 mg tablet,ex tended release 24 hr TAKE 1 TABLET BY MOUTH DAILY active Not Available Not Available No t Available riboflavi n (vitamin B2) 100 mg tablet Take 1 tablet every day by oral route. 08/21 completed Not Available Not Available Not Available sumatript an 100 mg tablet TAKE 1 TABLET BY MOUTH 1 TIME NEEDED FOR MIGRAINE HEADACHE active Not Available Not Available No t Available topiramat e 25 mg tablet TAKE 1 TABLET BY MOUTH EVERY MORNING AND TAKE 2 TABLETS EVERY NIGHT AT BEDTIME active Not Available Not Available No t Available peg-elect rolyte solution 420 gram oral solution DRINK 240 ML BY MOUTH EVERY 10 MINUTES PRIOR TO COLONOSC OPY 10/16 completed Not Available Not Available Not Available tramadol 50 mg tablet Take 1 to 2 tablet(s ) every 6 hours by oral route as needed. 2012 active Not Available Not Available Not Avai lable terbinafi ne HCl 250 mg tablet TAKE 1 TABLET BY MOUTH EVERY DAY 06/22 completed Not Available Not Available Not Available propranol ol 10 mg tablet Take 1 tablet 3 times a day by oral route as needed. active per neurolog y note 02/17/24 Not Available Not Available Not Available amoxicill in 875 mg tablet TK 1 T PO Q 12 H FOR 7 DAYS 07/17 completed Not Available Not Available Not Available famotidin e 20 mg tablet TAKE 1 TABLET BY MOUTH DAILY AT BEDTIME active Not Available Not Available No t Available tamsulosi n 0.4 mg capsule TAKE 1 CAPSULE BY MOUTH EVERY DAY 07/17 completed Not Available Not Available Not Available Beulah 180 mg tablet 2007 active Take 1.00 tabs daily Not Available Not Available Not Available cephalexi n 500 mg capsule active Not Available Not Available Not Available pantopraz ole 40 mg tablet,de layed release TAKE 1 TABLET BY MOUTH EVERY DAY X90 DAYS active Not Available Not Available No t Available Guaifenes in AC 10 mg-100 mg/5 mL oral liquid Take 10 mL every 6 hours by oral route. 2012 active Not Available Not Available Not Avai lable betametha sone dipropion ate 0.05 % topical cream 06/22 completed Not Available Not Available Not Available oxybutyni n chloride ER 5 mg tablet,ex tended release 24 hr TAKE 1 TABLET BY MOUTH DAILY AT BEDTIME 06/22 completed Not Available Not Available Not Available gabapenti n 300 mg capsule TAKE 1 CAPSULE BY MOUTH AT BEDTIME active Not Available Not Available No t Available Cipro HC 0.2 %-1 % ear drops,bertin pension Instill 3 drops into affected ear(s) by otic route every 12 hours 2009 active Not Available Not Available Not Avai lable levofloxa annie 500 mg tablet Take 1 tablet every 24 hours by oral route for 7 days. 05/19 completed Not Available Not Available Not Available methylpre dnisolone 4 mg tablets in a dose pack FOLLOW PACKAGE DIRECTIO NS 10/25 completed Not Available Not Available Not Available ipratropi um bromide 42 mcg (0.06 %) nasal spray prn active Not Available Not Available Not Available oxybutyni n chloride 5 mg tablet TAKE 1 TABLET BY MOUTH EVERY NIGHT AT BEDTIME 08/21 completed Not Available Not Available Not Available ondansetr on 4 mg disintegr ating tablet DIS 1 T ON THE TONGUE Q 8 H PRF NAUSEA OR VOM 03/30 completed Not Available Not Available Not Available fluticaso ne propionat e 50 mcg/actua tion nasal spray,bertin pension SHAKE LIQUID AND USE 1 SPRAY IN EACH NOSTRIL EVERY DAY active Not Available Not Available No t Available doxycycli ne hyclate 100 mg tablet Take 2 tablets every day by oral route for 7 days. 05/27 completed pna Not Available Not Available Not Available Botox 100 unit injection q3mo 06/22 completed q4mo 08/21/21 Not Available Not Available Not Available neomycin- polymyxin -hydrocor t 3.5 mg-10,000 unit/mL-1 % ear drops,bertin p INSTILL 4 DROPS INTO AFFECTED EAR(S) BY OTIC ROUTE 3 TIMES PER DAY FOR 7 DAYS 04/01 completed Not Available Not Available Not Available cyclobenz aprine 5 mg tablet TAKE 1 TABLET BY MOUTH AT BEDTIME active Not Available Not Available No t Available ibuprofen active prn Not Available Not Hanh ilable Not Available ProAir HFA 90 mcg/actua tion aerosol inhaler Inhale 2 puffs by inhalati on route every 4-6 hours as needed. 2012 active Not Available Not Available Not Avai lable Beulah Allergy active 1 tab daily Not Available Not Available Not Available Flulaval Quad 7057-4964 60 mcg (15 mcg x 4)/0.5 mL IM suspensio n 06/04 completed Not Available Not Available Not Available Fluvirin 7463-9828 (PF) 45 mcg(15 mcg x3)/0.5 mL intramusc ular syringe ADM 0.5ML IM UTD 04/01 completed Not Available Not Available Not Available Clenpiq 10 mg-3.5 gram-12 gram/160 mL oral solution TK 160 ML PO ATN AND B COLONOSC OPY AND IN THE MORNING FOR COLONOSC OPY 03/30 completed Not Available Not Available Not Available Afluria Quad 5966-2654 (PF) 60 mcg (15 mcg x 4)/0.5 mL IM syringe ADM 0.5ML IM UTD 04/07 completed Not Available Not Available Not Available Afluria Qd 2018- (36 mos up)(PF)60 mcg (15 mcg x4)/0.5 mL IM syringe ADM 0.5ML IM UTD 03/30 completed Not Available Not Available Not Available Flucelvax Quad (PF) 60 mcg (15 mcg x 4)/0.5 mL IM syringe ADM 0.5ML IM UTD 11/25 completed Not Available Not Available Not Available Vitals Date Recorded Body height Body mass index (BMI) Body weight Heart rate Systolic blood pressure Diastolic blood pressure Provider Name and Address Organization Details Last Updated DateTime 5 177.17 cm 23.4 kg/m2 70251.6 8 g 79 /min 129 mm[Hg] 78 mm[Hg] ANTONIETA Mendoza [facility] 5 08:47:12 Social History Question Answer Notes LastModified by Organizat ion Details LastModified Time Tobacco Smoking Status Never Smoker Not Available [facility] 02/06/2011 04:54:19 Do You Have An Advance Directive? No [email or web address] Information not available 02/06/2011 What Is Your Level Of Alcohol Consumption? Occasional Rare Information not available 06/22/2024 Do You Wear A Helmet When Biking? Yes Information not available 08/17/2013 What Is Your Level Of Caffeine Consumption? Moderate 1 Cup= Of Tea A Day Information not available 06/22/2024 How Much Tobacco Do You Chew? None [email or web address] Information not available 02/06/2011 What Type Of Diet Are You Following? REGULAR Information not available 08/27/2022 Which Illicit Or Recreational Drugs Have You Used? None [email or web address] Information not available 02/06/2011 Do You Or Have You Ever Used E-cigarettes Or Vape? Never Used Electronic Cigarettes Information not available 03/30/2019 Education 4 Year College [email or web address] Information not available 02/06/2011 What Is Your Occupation? [employer] - [employer]. Information not available 06/22/2024 How Many Days In The Past Year Have You Had A Heavy Drinking Consumption (4+ Female, 5+ Male)? 0 [email or web address] Information not available 05/12/2012 Are There Any Guns Present In Your Home? No 06/22/24 Information not available 06/22/2024 Live Alone Or With Others? With Others Adopted Son (Carter), Mother And Father Information not available 01/30/2010 Have Your Ever Had Any Service? Yes Information not available 06/22/2024 Patient Has Health Care Proxy Signed And In Chart Yes [email or web address] Information not available 08/27/2022 Marital Status Single Information not available 02/06/2011 Mosquito Repellent Used Routinely Yes [email or web address] Information not available 02/06/2011 What Was The Date Of Your Most Recent Tobacco Screening? 06/22/2024 Information not available 06/22/2024 How Many Children Do You Have? 0 Adopted Sons: Carter 2001, Riki 1997 ([employer] Graduate, Not Working, Living With Adoptive Father) Information not available 08/22/2015 What Is Your Relationship Status? Single [email or web address] Information not available 08/27/2022 Do You Use Your Seat Belt Or Car Seat Routinely? Yes Information not available 08/21/2021 Seat Belts Used Routinely Yes [email or web address] Information not available 02/06/2011 Are You Sexually Active? No Inactive For Several Years Information not available 01/30/2010 Smoke Alarm In Home Yes [email or web address] Information not available 02/06/2011 Do You Have Smoke And Carbon Monoxide Detectors In Your Home? Yes Information not available 08/21/2021 Do You Or Have You Ever Used Smokeless Tobacco? Never Used Smokeless Tobacco Information not available 03/30/2019 How Much Tobacco Do You Smoke? No Information not available 03/30/2019 General Stress Level Medium Older Son Is Estranged, Loves Work Information not available 04/07/2018 Do You Use Any Illicit Or Recreational Drugs? No Information not available 08/21/2021 Do You Use Sunscreen Routinely? Yes [email or web address] Information not available 02/06/2011 How Many Years Have You Smoked Tobacco? 0 Information not available 09/09/2019 Do You Or Have You Ever Used Any Other Forms Of Tobacco Or Nicotine? No Information not available 06/22/2024 Sex: Unknown Functional Status Question Answer Note LastModified by Organizat ion Details LastModified Time What is your exercise level? Occasional Information not available 08/21/2021 Mental Status None recorded. Family History Relationship Description Onset Age of this Age Resolved Age Notes LastModified by Organization Details LastModified Time Sister Problem A&W pcarlan Not available 0 08/22/2015 15:54:28 Sister Problem A&W pcarlan Not available 0 08/22/2015 15:54:28 Mother Hyperlipidem ia pcarlan Not available 2015 15:54:28 Mother Hypertensive disorder pcarlan Not available 2015 15:54:28 Mother Malignant neoplasm of skin Non-me lanoma pcarlan Not available 08/22/2015 15:54:28 Paternal Grandmother Malignant tumor of colon >60 yrs pcarlan Not available 08/22/2015 15:54:28 Father Benign prostatic hyperplasia pcarlan Not available 03/2015 15:54:28 Father Hypertensive disorder dolcott Not available 2020 14:14:01 Notes:No other cancers, DM, CAD Medical History Condition Response NEUROLOGIC Y Allergies Y Migraine Headaches Y Immunizations Vaccine Type Date Status Note Provider Nam e and Address Organization Details Recorded Time influenza, unspecified formulation 0 completed Not Available [facility] 02/05/2011 05:22:41 influenza, unspecified formulation 2 [facility]/22[facility]2011 11:21:17 influenza, unspecified formulation 2 completed [facility] 04/08/2012 10:45:03 influenza, unspecified formulation 3 completed [facility] 02/28/2013 08:50:26 influenza, unspecified formulation 5 completed Kayy Gray MA [facility] 02/26/2015 10:12:10 influenza, unspecified formulation 7 completed Lucas Carlisle MA [facility] 12/10/2016 10:10:41 Influenza, split virus, quadrivalent, preservative 8 completed Aishwarya Buenrostro [facility] 12/21/2017 08:12:53 Influenza, split virus, quadrivalent, preservative 9 completed [facility] 11/18/2018 16:48:18 Tdap 1 completed Yazmin Ricketts RN [facility] 07/18/2020 10:59:23 Influenza, split virus, quadrivalent, preservative 0 completed JESS Andres, [facility] 11/09/2019 15:42:39 COVID-19, mRNA, LNP-S, PF, 30 mcg/0.3 mL dose 1 completed [facility]ard [facility] 07/17/2020 13:51:50 COVID-19, mRNA, LNP-S, PF, 30 mcg/0.3 mL dose 0 completed [facility]abel[facility]ard [facility] 07/17/2020 13:53:41 Tdap 0 completed Not Available [facility] 04/09/2019 02:15:23 zoster recombinant 1 completed Jyoti Youngblood [facility] 10/26/2023 11:02:12 zoster recombinant 1 completed [facility]yoti [facility]blood [facility] 10/26/2023 11:02:25 COVID-19, mRNA, LNP-S, PF, 30 mcg/0.3 mL dose 4 completed Jyoti Youngblood JESS baumann, [facility] 11/25/2023 15:45:42 influenza, unspecified formulation 4 completed Jyoti Youngblood [facility] 11/25/2023 15:46:13 COVID-19, mRNA, LNP-S, PF, elaina-sucrose, 30 mcg/0.3 mL 3 completed ANTONIETA Mendoza null, [facility] 06/22/2024 07:33:14 COVID-19, mRNA, LNP-S, PF, 30 mcg/0.3 mL dose 2 completed Yu Lakhani RMRavindra [facility] 06/22/2024 07:37:29 Past Encounters Encounter ID Performer Location Encounter Start Date Encounter Closed Date Diagnosis/Indication Diagnosis SNOMED-CT Code Diagnosis ICD10 Code Diagnosis Note [id number] ANGY [facility], OFFICE [address] [place], [place] [address] [place] [address] 01/19/2006 14:20:30 01/20/2006 06:20:27 [id number] ANGY [facility], OFFICE [address], [place] [id number] 11/24/2006 11:08:26 11/24/2006 17:10:05 [id number] [facility], OFFICE [address], [place] [id number] 11/28/2006 11:04:27 12/05/2006 09:23:32 [id number] [facility], OFFICE [address] [place], [place] [id number] 01/04/2007 14:06:17 01/04/2007 17:22:37 [id number] [facility] [address], [place] [id number] 01/11/2007 08:10:59 01/11/2007 08:11:02 [id number] [facility], OFFICE [address], [place] [id number] 03/22/2007 10:50:04 04/12/2008 02:02:29 [id number] [facility], OFFICE [address], [place] [id number] 03/17/2007 15:11:23 04/12/2008 02:02:29 [id number] [facility], OFFICE [address] [place], [place] [id number] 04/06/2007 09:18:35 04/12/2008 02:02:29 [id number] [facility], OFFICE [address], [place] [id number] 04/15/2007 15:17:51 04/12/2008 02:02:29 [id number] Radiology , [facility] [place], [place] [id number] 04/15/2007 15:44:23 04/16/2007 15:10:35 [id number] Radiology , [facility] [place], [place] [id number] 04/15/2007 00:00:00 04/12/2008 02:02:29 [id number] [facility], OFFICE [address], [place] [id number] 08/04/2007 10:26:24 04/12/2008 02:02:29 [id number] [facility], OFFICE [address] [place], [place] [id number] 11/03/2008 10:04:53 11/06/2008 08:55:[id number] [facility], OFFICE [address], [place] [id number] 01/11/2010 08:45:07 01/11/2010 15:51:[id number] [facility], OFFICE [address] [place], [place] [id number] 01/30/2010 13:54:16 01/31/2010 08:18:[id number] [facility], OFFICE [address] [place], [place] [id number] 08/22/2011 10:57:31 08/22/2011 11:36:[id number] [facility], OFFICE [address], [place] [id number] 04/08/2012 10:29:56 04/08/2012 14:34:[id number] [facility], OFFICE [address] [place], [place] [id number] 05/03/2012 10:45:52 05/03/2012 11:17:24 [id number] Shanelle Verma NP , [facility], OFFICE [address], [place] [id number] 05/12/2012 13:08:47 05/12/2012 14:21:32 [id number] Derik Hyatt MD [facility] , [facility] [address], [place] [id number] 05/12/2012 14:22:59 05/12/2012 15:01:45 [id number] Suki Ramos PA-C [facility], OFFICE [address], [place] [id number] 05/20/2012 11:03:23 05/20/2012 12:07:55 [id number] Suki Ramos PA-C [facility], OFFICE [address], [place] [id number] 05/25/2012 10:04:19 05/26/2012 08:27:[id number] [facility], OFFICE [address], [place] [id number] 08/04/2012 14:00:44 08/05/2012 08:09:14 [id number] Lucas Carlisle MA , [facility], OFFICE [address] [facility] [place] [id number] 02/28/2013 08:43:31 02/28/2013 09:18:12 Pain in face [id number] strictly L-sided worsening burningly sharp facial pain from upper lip under nostrils in a 2cm band up to approx the L TMJ area. Doubt trigeminal neuralgia as distributi on and quality of pain do not agree with that dx; more likely shingles, though 3 days without a rash appearing is a long time. Will provide tramadol for pain. I asked pt to follow up SILVIA if a rash appears. [id number] JESS Corbett, [facility], OFFICE [address] [place] [id number] 08/17/2013 13:00:11 08/17/2013 13:56:05 Adult health examination [id number] Discussed healthy diet, regular exercise, stress reduction, and the importance of achieving and maintainin g a healthy weight. Recommende d routine use of seat belts, and applicatio n of sunscreen and insect repellent. Recommende d completion of a Health Care Proxy. Migraine without aura 09853177 Continue meds as per Arethrya. Tremor [id number] Continue meds/botox as per Arethrya. Allergic rhinitis [id number] Discussed allergen avoidance including closing windows, running A/C or HEPA filter (suspected outdoor allergens) or barring pets from room, removing carpets, frequent vaccuuming , mattress covers, synthetic pillows, washing bedding in warm water, and changing filters on forced air HVAC systems or using HEPA filter (suspected indoor allergens) . I recommend over the counter antihistam ine, selective (claritin/ loratadine or zyrtec/cet irizine) for day use and non-select gayle (diphenhyd patty) for night use. Rationale for intranasal steroids reviewed and method of use and risks (including irritation and epistaxis) discussed. Epiphora 100781215 Recom mend trial eye drops. To ophthalmol ogy if persists. [id number] [facility], OFFICE [address] [facility] [place] [id number] 02/26/2015 09:53:29 02/26/2015 10:31:00 Pilonidal cyst with abscess [id number] L05.01 Discussed pilonidal diagnosis and management . Will refer for ID last this week with general surgery. Can return here if unable to be seen for this later this week though I prefer he see surgery and this will require definitive surgical management . No indication for antiobioti cs now as local process. Return for fever, increasing redness, pain, drainage. [id number] MAGGI Frias, [facility], OFFICE [address] [facility] [place] [id number] 05/30/2015 14:38:06 05/30/2015 15:40:10 Snoring symptoms [id number] R06.83 R53.83 [id number] MD ANGY Orona, [facility], OFFICE [address] [place] [id number] 08/22/2015 14:57:28 08/23/2015 07:23:22 Adult health examination [id number] Z00.00 Discussed healthy diet, regular exercise, stress reduction, and the importance of achieving and maintainin g a healthy weight. Recommende d routine use of seat belts, and applicatio n of sunscreen and insect repellent. Recommende d completion of a Health Care Proxy. Migraine without aura 56 [id number] G43.009 Continue meds as per Athreya. Tremor 68960163 R25.1 Continue meds/botox as per Athreya. Insomnia 300170246 G47.0 0 We discussed common etiologies of sleep difficulti es in primary care practice including anxiety and depressive disorders (including major depression , dysthymia, bipolar, panic disorder, and ANA MARIA), substance misuse and abuse, sleep apnea, polyuria, caffeineis m, and poor sleep hygiene. Sleep habits were addressed including following a schedule, not going to bed until tired, avoiding non-sleep activities (other than sexual) in sleep space, avoiding clock-watc brock, maintainin g a cool sleep environmen t, and permitting only 15-30 minutes of time trying to fall asleep before moving to a different space for quiet activities and a later retrial of sleep when tired. Avoidance of alcohol as a sleep aid and avoiding caffeine after noon were addressed. Advised to limit exposure to screens in the hours before bed. OTC medication s including melatonin and valerian were discussed. Cognitive behavioral therapy was explained and suggested as an aide for anxiety as it interferes with sleep. [id number] Radha Guerrero MD , [facility], OFFICE [address] [facility] [place] [id number] 06/04/2016 09:46:35 06/04/2016 10:13:33 Otitis externa [id number] H60.92 Ear canal is quite swollen. No concern for mastoiditi s. Will treat with topical antibiotic and steroid. Advised pt to avoiding getting ear wet. Do not put anything in ear apart from ear drops. Follow up in 1 week for reevaluati on. Call if fevers, worsening pain or any new concerns. [id number] Radha Guerrero MD , [facility], OFFICE [address] [facility] [place] [address] 06/11/2016 11:40:13 06/11/2016 16:54:20 Otitis externa 3934891 H60.92 Improved erythema and swelling of left ear canal. After bilateral ears flushed, TMs visualized . Appear scarred. Still appears to be some white slough in left ear canal. Can stop ear drops. Advised pt to avoiding getting ear wet. Use ear plugs if swimming. Do not use q tips or other objects that could impact wax. Let us know if recurrence of symptoms, fevers, worsening pain or any new concerns. [id number] Riki Smith MD , [facility], OFFICE 329 [facility] [place] [address] 04/01/2017 14:50:01 04/01/2017 15:38:29 Adult health examination 701118913 Z00.00 Discussed healthy diet, regular exercise, stress reduction, and the importance of achieving and maintainin g a healthy weight. Recommende d routine use of seat belts, helmets for high velocity sports, and applicatio n of sunscreen and insect repellent. Recommende d completion of a Health Care Proxy. Migraine without aura 56 279140 G43.009 Continue meds as per Athreya. 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 [id number] Riki Smith MD , [facility], OFFICE [address] [facility] [place] [address] 04/07/2018 12:58:35 04/07/2018 13:54:40 Adult health examination 628505205 Z00.00 Discussed healthy diet, regular exercise, stress reduction, and the importance of achieving and maintainin g a healthy weight. Recommende d routine use of seat belts, helmets for high velocity sports, and applicatio n of sunscreen and insect repellent. Recommende d completion of a Health Care Proxy. Depression screening 171 096509 Z13.89 depression screening tool administer ed, entered into emr, scored and discussed, time greater than 7.5 minutes Migraine without aura 56 958319 G43.009 Continue meds as per Athreya. Focal dystonia 947224225 G24.8 Continue meds/botox as per Athreya. Allergic r hinitis caused by pollen 19336228 J30.1 Discussed allergen avoidance including closing windows, running A/C or HEPA filter (suspected outdoor allergens) or barring pets from room, removing carpets, frequent vaccuuming , mattress covers, synthetic pillows, washing bedding in warm water, and changing filters on forced air HVAC systems or using HEPA filter (suspected indoor allergens) . I recommend over the counter antihistam ine, selective (claritin/ loratadine or zyrtec/cet irizine) for day use and non-select gayle (diphenhyd ramine) for night use. Rationale for intranasal steroids reviewed and method of use and risks (including irritation and epistaxis) discussed. [id number] Riki Smith MD , [facility], OFFICE [address] [place] [address] 06/23/2018 11:13:29 06/23/2018 12:01:07 Dysphagia 09710646 R13.10 Recurrent episodes of ?dysphaghi a and regurgitat ion without significan t indigestio n. Ddx: tumor, stricture (peptic, EoE), dysmotilit y. Erpisodic nature makes many of these unlikely. See GI for EGD. [id number] Riki Smith MD , [facility], OFFICE 329 [facility] [place] [id number] 03/30/2019 10:10:52 03/30/2019 10:57:14 Splenomegaly 41819092 R16.1 Eugene has fairly significan t SM on CT. He also has mild but persistent thrombocyt openia since at least 2012. He does not drink and does not have evidence of cirrhosis on CT. His LFTs and albumin are normal. He has no symptoms to suggest CHF. Despite his recent illness which seems like an uncomplica fiona episode of AGE, he has not symptoms now to suggest an infection. His HIV risks are nil. He has no symptoms to suggest an inflammato ry disorder. He seems unlikely to have a malignancy given normal abd CT scan and normal WBC and HgB, but is having some night sweats. Finally, he could have a hemolytic disorder. I will check labs and a CXR as below to screen for hemolysis, lymphadeno paresh, increased cell turnover, inflammati on, a and HIV. I have referred Eugene to hematology . [id number] Jonathan Campos PA-C , [facility], OFFICE [address] [facility] [place] [address] 04/20/2019 08:29:58 04/20/2019 09:29:53 Splenomegaly 11267135 R16.1 Pending hematology f/u. Splenomega ly and persistant thrombocyt openia. Appointmen t with May 13. Pt states he is feeling well, no abd complaints .Some anxiety manageable about the unknown etiology. Practicing healthy coping mechanisms , with exercise. He is aware that they have [facility] for follow-up as well as office visits if he notices that anxiety function. He denies any issues with mood. Migraine without aura 56 707775 G43.009 Continue meds as per Athreya. Next visit in May. 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 Improvemen t noted by patient Allergic r hinitis caused by pollen 79680225 J30.1 Followed by immunology /allergy Dr. Sanchez Sinclair.Conrado nues with flonase and antihistam ine. Controlled . Adult heal th examination 165962165 Z00.00 Pleasant 48-year-ol d male presenting today for a routine wellness visit. Counseling per HPI. He is up-to-date on his flu shot. [place] in [place], requested repeat in 5 years. Physical form completed for work. F/u for [place] in one year and with PCP after heme/onc consult. Could screen lipids this year. Counseling 710230666 Z71 .9 including cardiovasc ular risk reduction counseling . Depression screening 171 329396 Z13.89 depression screening tool administer ed, entered into emr, scored and discussed, time greater than 7.5 minutes. Screening negative. Screening for alcohol abuse 686511177 Z13.39 Denies regular consumptio n. Sands's esophagus 3029 39716 K22.70 Continues on protonix with good results. Resolution of dysphagia. EGD last year. Recommend routine screening. [id number] MD ANGY Moon, [facility], OFFICE [address] [place] [address] 05/25/2019 10:29:43 05/25/2019 11:10:59 Onychomycosis 778105902 B35.1 [id number] Jonathan Campos PA-C , [facility], OFFICE [address] [place] [address] 09/09/2019 07:29:34 09/09/2019 13:37:17 Slowing of urinary stream 10372504 R39.12 Associated with frequency discussed differenti al will proceed will UA. Discussed likely LUTS 2/2 BPH Reviewed utility of PSA and he will think about if he is wants to proceed with this testing. No family hx for malignant prostate CA, father had BPH and obstructio n was remedied by surgical interventi on. Discussed possible trial of tamsulosin . He will f/u for UA and continue behavioral changes with fluid restrictio n 2 hours prior to sleep and void before bed. F/u 3 weeks to consider PSA and trial of alpha robbie if non-infect ious/not improving. Sooner if needed. [id number] Jonathan Campos PA-C , [facility], OFFICE [address] [place] [address] 09/22/2019 15:21:44 09/22/2019 16:23:29 Slowing of urinary stream 73387507 R39.12 UA negative. Discussed likely LUTS 2/2 BPH. No family hx for malignant prostate CA, father had BPH and obstructio n was remedied by surgical interventi on. Agreed to trial of tamsulosin . Continue behavioral changes with fluid restrictio n 2 hours prior to sleep and void before bed. Otherwise continue to hydrate. Pt has relatively low BP and was cautioned on signs of hypotensio n at length. He agrees to trial of medication and all questions were answered. He will monitor and report of efficacy in 4 weeks, sooner w/ issues. If no improvemen t consider PSA and urology f/u. [id number] LORI Dunlap , [facility], OFFICE [address] [facility] [place] [address] 11/26/2019 10:06:48 11/26/2019 10:53:10 Acute otitis media 4168195 H66.91 Suspect ROM without suggestive symptoms for rupture. With hx of duration, we have opted to treat with oral abx. Amox as directed. Discussed safe use and side effects. Encouraged probiotic use. Symptomati c care explained. Reviewed signs and symptoms that would warrant further/em ergent evaluation .Follow up as needed/as instructed .bingo caller and urgent care access hours reviewed. [id number] Inge Menchaca DPM Podiatry, [facility] [address] [facility] [place] [address] 01/18/2020 13:41:19 01/23/2020 13:21:00 Onychomycosis 938469960 B35.1 Hepatic panel ordered to assess liver function to determine if he would be a good candidate for lamisil medication . Pain in toe 322685683 M7 9.672 [id number] Jonathan Campos PA-C , [facility], OFFICE [address] [facility] [place] [address] 07/17/2020 13:43:40 07/17/2020 14:52:36 Adult health examination 981351572 Z00.00 Pleasant 50-year-ol d male presenting today for a routine wellness visit. Counseling per HPI. [place] in [place], requested repeat in 5 years. F/u for [place] in one year. Due for shinges and tetanus booster. Complete COVID series. Counseling 216388987 Z71 .9 Behavior change counseling to lower cardiovasc ular disease/st roke risk: 1.Eat a healthy diet - Center your eating plan around vegetables , fruits, whole grains, legumes, nuts, plant-base d proteins, lean animal proteins and fish. Make smart choices like limiting refined carbohydra truong, processed meats and sweetened drinks. Use the nutrition facts label on packaged foods to cut back on sodium, added sugars and saturated fats, and avoid trans fat. 2. Be physically active and move more - This is one of the best ways to stay healthy, prevent disease and age well. Adults should get at least 150 minutes of moderate-i ntensity aerobic activity or 75 minutes of vigorous activity each week. If you? r e already active, you can increase your intensity for even more benefits. If you? r e not active now, get started by simply sitting less and moving more. 3. Watch your weight - Stay at a healthy weight for you. Lose weight if you? r e overweight or obese. Start by eating fewer calories and moving more. You can check your body mass index (BMI). 5. Live tobacco-fr ee - If you don? t smoke, vape or use tobacco products, don? t ever start. There? s no such thing as a safe tobacco product. Don? t just swap one tobacco source for another. And try to avoid secondhand smoke, too! 6. Manage conditions - If you have high blood pressure (hypertens ion), high cholestero l, high blood sugar, diabetes or other conditions that put you at greater risk, it? s very important to work with your health care team and make lifestyle changes. Many conditions can be prevented or managed by eating better, getting active, losing weight and quitting tobacco. 7. Take your medicine - If you have a health condition, your doctor may prescribe statins or other medication s to help control cholestero l, blood sugar and blood pressure. Take all medication s as directed. But don? t take aspirin as a preventive measure unless your doctor tells you to. If you? v e never had a heart attack or stroke, a daily aspirin may not help you at all and could cause problems including risk of bleeding. If you? v e had a heart attack or stroke, your doctor may want you to take a low dose of aspirin to reduce your risk of having another. 8. Be a team player - Your health care team can help you reduce your risk of heart disease or stroke to live a longer, healthier life. Work together on your prevention plan. Ask questions, and be open about any challenges you may face in trying to make healthy changes. Stress, sleep, mental health, family situations , tobacco use, food access, social support and other issues all can affect your health and well-being . >15 mins spent in discussion re: importance of CV exercise to recuse CV risk. No ASA, No Dm. Depression screening 171 510878 Z13.31 depression screening tool administer ed, entered into emr, scored and discussed, time greater than 7.5 minutes, reviewed neg. Screening for alcohol abuse 062570930 Z13.39 Denies regular consumptio n. Screening for disorder 423632859 Z11.59 LDL normal in 2013. Repeat screening agreed upon. Splenomegaly 75664355 R1 6.[address] Woods today. Splenomega ly and persistant thrombocyt openia. Yearly f/u for monitoring , etiology unclear. Per HPI. Migraine without aura 56 865984 G43.009 Controlled . Continue meds as per Athreya. Focal dystonia 999534021 G24.8 Continue meds/botox as per Athreya. Marked improvemen t noted by patient Allergic r hinitis caused by pollen 39619165 J30.1 Followed by immunology /allergy Dr. Sanchez Sinclair.Conrado nues with flonase and antihistam ine. Controlled . Sands's esophagus 3029 40945 K22.70 No concerns today. Takes protonix with good results. Resolution of dysphagia. EGD 2018 continue routine screening. 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 Snoring 41266474 R06.83 Reviewed simple snoring Dx from sleep study 2016 and discussed conservati ve mgmt, trial lateral positions with pillow wedges. Notify if disruption s or apneic episodes to reestablis h with sleep med. [id number] Yazmin Ricketts RN FP, [facility], OFFICE [address] [place] [address] 07/18/2020 10:52:11 07/18/2020 12:40:21 Active or passive immunization 117680573 Z23 [id number] MD ANGY TORRES, [facility], OFFICE [address] [facility] [address] 08/21/2021 10:18:21 08/21/2021 11:18:40 Adult health examination 151836024 Z00.00 Patient presents to clinic for full physical examinatio n#Immuniza tions: Completed RZV.#Colon cancer screening: Due for 5 year follow up 07/2023 for polyps.#Hy perlipidem ia surveillan ce: annual#Loren betes surveillan ce: annual#STI surveillan ce: low risk, declines.# Substance use: never smoker, very little drinking Counseling 866532657 Z71 .9 Depression screening 171 254635 Z13.31 depression screening tool administer ed, entered into emr, scored and discussed, time greater than 7.5 minutes, reviewed neg. Screening for alcohol abuse 000962577 Z13.39 AUDIT c = 1 Splenomegaly 22976146 R1 6.1 Splenomega ly and mild thrombocyt openia of unclear etiology. Seen by Dr. Woods who recommende d continued observatio n. Spleen stable in size, platelet count stable. Chronic. Less suspicious for myelo/lymp hoprolifer ative etiology. Annual follow up with Dr. Woods next week. Migraine without aura 56 492712 G43.009 Controlled . Continue botox injections and meds as per Athreya. Focal dystonia 681081354 G24.8 Continue meds/botox as per Athreya. Marked improvemen t noted by patient Sands's esophagus 3029 95709 K22.70 Takes protonix. Resolution of dysphagia. EGD 2018 continue routine screening. Due for follow up EGD. Hyperlipid emia screening 505303876 Z13.220 Diabetes m ellitus screening 695969030 Z13.1 Hepatitis C screening 41 1394237 Z11.59 Family his tory of malignant neoplasm of skin 220139740 Z80.8 Patient not sure about cancer type, will investigat e. [id number] FENG Bailey MD FP, [facility], OFFICE [address] [place] [address] 08/27/2022 10:17:32 08/27/2022 11:26:19 Adult health examination 421845458 Z00.00 Patient presents to clinic for wellness visit. 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[employer].# Immunizati ons: Completed RZV, but we do not have these records#Co aditi cancer screening: Due for 5 year follow up 07/2023 for polyps.#Hy perlipidem ia surveillan ce: will plan for q3 year check#Diab etes surveillan ce: will plan for q3 year check#Subs tance use: never smoker, not drinking#A CP: HCP form completed today Depression screening 171 654624 Z13.31 depression screening tool administer ed Screening for alcohol abuse 067405797 Z13.39 Alcohol use screening tool administer ed Counseling 905294605 Z71 .9 Splenomegaly 93106568 R1 6.1 Splenomega ly and mild thrombocyt openia of unclear etiology. Followed by Dr. Woods, who recommends continued observatio n. Spleen stable in size, platelet count stable. Chronic. Less suspicious for myelo/lymp hoprolifer ative etiology. Migraine without aura 56 702460 G43.009 Controlled . Continue botox injections and sumatripta n as per Athreya. Focal dystonia 075364722 G24.8 Continue gabapentin /topamax/b otox as per Athreya. Marked improvemen t noted by patient Sands's esophagus 3029 [address] Cheema 04/2022, with plan for follow up EGD 09/09/22. Family his tory of malignant neoplasm of skin 638816017 Z80.8 Following with dermatolog y for annual skin checks. Screening for malignant neoplasm of colon 629245226 Z12.11 Thrombocyt openic disorder 067191759 D69.6 Following with heme, who think this is likely due to hypersplen ism from chronic splenomega ly. Onychomycosis 972080578 B35.1 [id number] Inge Menchaca DPM Podiatry, [address] [place] [address] 09/10/2022 14:07:18 09/16/2022 10:14:03 Onychomycosis 537176613 B35.1 clinically evidence apparent. Decision made not biopsy toenail. Reviewed oral and topical medication s with patient. Hepatic panel normal so 1 month course of terbinafin e ordered. I spent > 25 mins face to face with patient, more 50% spent in counseling and coordinati on of care. Pain in toe 299963842 M7 9.451 [id number] Divya Gonzales, MILES-C FP, [facility], OFFICE [address] [facility] [place] [address] 04/01/2023 16:08:07 04/01/2023 17:44:52 Focal dystonia 732004353 G24.8 Of RIGHT hand/arm sinceFollo wed by neurolognora gooden - will see them in Spring 2023. Pain of left hand 960648 9574 71745 M79.642 See HPI for detailsLef t hand pain is resolvingM SK exam of bilateral hands is normalGrip strength both hands equal Discussed he may have had temporary radial neuropathy secondary to sleeping with left wrist bent.He will continue to monitor and follow up with neurologis t if symptoms worsen or persistDis cussed trial of sleeping with a wrist splint. Thrombocyt openic disorder 625720590 D69.[address] Flowers t seen 10/21/2022L T 112 on 10/2022 per PVIX and stable [id number] Shanelle Verma NP , [facility], OFFICE [address] [facility] [place] [address] 10/17/2023 10:45:30 10/19/2023 09:15:47 Pain in right hand 6467721844 01638 M79.641 W/ mild edema and inability to use fingers normally. Etiology unclear; may be r/t recent Botox injection in R forearm; could be de Quervain's tenosynovi tis w/ unusual presentati on. Will prescribe Medrol dose-danielle. Recommend f/u w/ [facility] on Thursday in case there's some connection to his focal dystonia or recent Botox injection. Focal dystonia 709514194 G24.8 R forearm since early . [id number] , [facility], OFFICE [address] [facility] [place] [address] 10/26/2023 10:46:14 10/26/2023 11:26:55 Pain in right hand 4724388557 69583 M79.641 W/ mild edema and inability to use fingers normally.E tiology unclear; may be r/t recent Botox injection in R forearm. ? carpal tunnel.pre scribed Medrol dose-danielle 10/17/2023 . 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 increase gabapentin continue tylenol/ib utrial carpal tunnel braceremai n oow until after 11/09/2023 send for OT referralev aluate for cause of discomfort with nerve conduction study and RE US to r/o DVTf/u in 2 weeks Focal dystonia 262217362 G24.8 R forearm since early 1999s. [id number] Riki Koroma PA-C , [facility], OFFICE [address] [facility] [place] [address] 11/05/2023 09:50:25 11/05/2023 11:13:58 Pain in right hand 2439433038 08297 M79.641 Etiology unclear; may be r/t recent Botox injection in R forearm. ? carpal tunnel. prescribed Medrol dose-danielle 10/17/2023 . some improvemen t in swelling of hand but painconcer n for significan t radial nerve entrapment /nerve palsyneuro logy is unsure of the cause of pain. us - No evidence of upper extremity deep vein thrombosis . No evidence of cephalic or basilic vein thrombosis . nerve conduction study scheduled 12/11/2023 OT scheduled 12/03/2023 with francie west decreased hog sawyer strength right hand compared to left hand inability to abduct right thumb, ulnar deviation o right wrist wrist inability for extension. schedule f/u with hand specialist within 1-2 weeksconzoya blackburn d/c gabapentin continue using ibuprofen/ tylenol. most helpful. remain oow through 12/21/2023 f/u with myself week of 12/14/2023 ER/911 precaution s providedal l questions answered. Focal dystonia 599108215 G24.8 R forearm since early 1999s. [id number] KIM Carvalho/L, [facility], [facility] [address] [place] [address] 11/17/2023 08:25:06 11/17/2023 10:49:51 Right radial nerve palsy 5116303504 3462079 G56.31 [id number] KIM Carvalho/L, [facility], [address] [place] [address] 12/10/2023 15:18:19 12/10/2023 16:23:53 Right radial nerve palsy 5424392878 2205254 G56.31 [id number] Riki Koroma PA-C , [facility], OFFICE [address] [place] [address] [place], [place] [address] 12/14/2023 09:49:17 12/14/2023 11:39:17 Focal dystonia 833813460 G24.8 R forearm since early . Right radi al nerve palsy 8195856393 5013005 G56.31 Etiology unclear; may be r/t recent Botox injection in R forearm. ? carpal tunnel. prescribed Medrol dose-danielle 10/17/2023 . some improvemen t in swelling of hand but pain concern for significan t radial nerve entrapment /nerve palsy.us 10/28/2023 - No evidence of upper extremity deep vein thrombosis . No evidence of cephalic or basilic vein thrombosis . nerve conduction study 12/11/2023 OT with francie west f/u with hand specialist 12/21/2023 tylenol/ib u for pain. gabapentin 300 mg at bedtime decreased hog sawyer strength right hand compared to left hand. improving previous inability to abduct right thumb, ulnar deviation of right wrist wrist inability for extension. ROM of hand and wrist improving. remain oow through 12/21/2023 . f/u with hand specialist .ER/911 precaution s provided all questions answered. [id number] Francie West OTR/L, [facility], [address], [place] [address] 12/17/2023 15:19:49 12/18/2023 11:10:08 Right radial nerve palsy 9886320015 5581308 G56.31 [id number] Francie West OTR/L, [facility], [address] [place], [place] [address] 01/14/2024 15:21:33 01/20/2024 10:40:26 Right radial nerve palsy 0216415531 5160974 G56.31 [id number] Francie Iannitelli , OTR/L, [facility], [address] [place] [id number] 01/21/2024 15:21:35 01/21/2024 17:07:05 Right radial nerve palsy 5788039673 5385567 G56.31 [id number] Francie West , OTR/L, [facility], [address] [place] [id number] 01/28/2024 09:22:36 01/28/2024 12:27:13 Right radial nerve palsy 1965963646 6184595 G56.31 [id number] Francievalente West OTR/L, [facility], [address] [place], [place] [address] 02/08/2024 12:23:36 02/08/2024 13:40:41 Right radial nerve palsy 7295558615 7668948 G56.31 [id number] Riki Koroma PA-C , [facility], OFFICE [address] [place] [address] [place], [place] [address] 06/22/2024 08:45:09 06/22/2024 09:53:23 Adult health examination 270054049 Z00.00 Depression screening 171 145070 Z13.31 depression screening tool administer ed Screening for alcohol abuse 075720752 Z13.39 Alcohol use screening tool administer ed Screening for malignant neoplasm of prostate 655877741 Z12.5 If you have a prostate, the U.S. Preventive Services Task Force advises not to make a PSA test a part of the standard exam for ages 55-69. Instead they recommend the uncertaint ies about the test be discussed and ordered only if a patient still wants it. Over their lifetimes as many as 50% or more of persons with a prostate will develop prostate cancer but only 2% of them will of prostate cancer. For those who chose to be screened for prostate cancer, if 1000 are screened with a psa test over a 15 year period there might be 1-2 deaths prevented however 235 persons will have a biopsy with risk of infection, bleeding and pain, 100 will have their prostate removed by surgery or radiation treatments and 60-70 of those will suffer incontinen ce or impotence. There is also the risk of anesthesia or radiation complicati ons. For those over 70, prostate cancer screening offered no benefit and risked pain, worry, expense and possibly shorter life expectancy . agrees to screening PSA. ordered. Diverticul osis of colon [id number] K57.30 no constipati on, staying well hydrated, good sources of fiber. Sands's esophagus 3029 70077 K22.70 stable. on PPI and H2 robbie.ch ronically. we wll balanced diet. Migraine without aura 56 [id number] G43.009 well controlled with topiramate . prn sumatripta n. Allergic r hinitis caused by pollen [id number] J30.1 well controlled with nasal sprays and non-drowsy anti-hista mines Immunization due [id number] Z28.39 06/22/24=Has not had. Aware can set up a nurse visit or have at the pharmacy. Right radi al nerve palsy [id number] G56.31 Etiology unclear; may be r/t recent Botox injection in R forearm. ? carpal tunnel. following with neurology. prescribed Medrol dose-danielle 10/17/2023 . some improvemen t in swelling of hand but pain concern for significan t radial nerve entrapment /nerve palsy.us 10/28/2023 - No evidence of upper extremity deep vein thrombosis . No evidence of cephalic or basilic vein thrombosis . nerve conduction study 12/11/2023 OT with francie west beneficial . f/u with hand specialist 12/21/2023 tylenol/ib u for pain. gabapentin 300 mg at bedtime he is functional . main problem is pain control medication regimen, tyl, ibu, gabapentin , and flexeril. he will f/u with neurology. decreased hog sawyer strength right hand has resolved. good functional movement of the handand wrist. previous inability to abduct right thumb, ulnar deviation of right wrist or extension. Lower urin charleen tract symptoms due to benign prostatic hypertrophy [id number] 9101 N40.1 following with urology update PSA Overactive urinary bladder [id number] N32.81 oxybutynin works wellfollow ing with urology Snoring [id number] R06.83 excessive snoringHST 2015 not conclusive for sleep apnea. f/u again with sleep medicine. Health Concerns Section Related Observation LastModified by Organization Detai ls LastModified Time None Recorded Concern Status LastModified by Organization Details LastModified Time None Recorded Advance Directives Directive N: Payers Encounter Date Sequence Insurance Name Policy Number Policy Nichols Covered Member ID Nichols Member ID Guarantor Name 01/14/2024 1 [facility] [id number] Scot Andrea [id number] Scot Andrea 01/21/2024 1 [facility] [id number] Scot Andrea [id number] Scot Andrea 01/28/2024 1 [facility] [id number] Scot Andrea [id number] Scot Andrea 02/08/2024 1 [facility] [id number] Scot Andrea [id number] Scot Andrea 06/22/2024 1 [facility] [id number] Scot Andrea [id number] Scot Andrea Notes Date Note Type Note Provider Name and Address Organization Details Recorded Time 4 text/html Physical Therapy History of Present IllnessReported bypatient.History:53 y.o. referred to OT w/ R radial nerve palsy. Onset of symptoms October 16, 2023 of unknown etiology. Underwent botox injection approx 12 days prior to symptoms for long hx of focal dystonia. 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 referred to OT w/ R radial nerve palsy. Onset of symptoms October 16, 2023 of unknown etiology. Underwent botox injection approx 12 days prior to symptoms for long hx of focal dystonia. 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 due to injury; full duty ([employer]) Recreational status:walking program, busy w/ son- 22 years old, household dutiesOT Hand/FingersReported bypatient.Hand Dominance:ambidextrous Location:right; radial nerve pain Severity:pain level 8, 4, 2/10; ibuprofen prn pain is decreasing towards end of day Duration:weeks; 2 months Francie West OTR/L, [address] [place], [address], [facility] 01/21/2024 16:12:49 4 text/html Physical Therapy History of Present IllnessReported bypatient.History:53 y.o. referred to OT w/ R radial nerve palsy. Onset of symptoms October 16, 2023 of unknown etiology. Underwent botox injection approx 12 days prior to symptoms for long hx of focal dystonia. 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 due to injury; full duty ([employer]) Recreational status:walking program, busy w/ son- 22 years old, household dutiesOT Hand/FingersReported bypatient.Hand Dominance:ambidextrous Location:right; radial nerve pain Severity:pain level 8, 4, 2/10; ibuprofen prn pain is decreasing towards end of day Duration:weeks; 2 months Francie West OTR/L, [address] [place], [address], [facility] 01/28/2024 10:06:27 4 text/html Physical Therapy History of Present IllnessReported bypatient.History:53 y.o. referred to OT w/ R radial nerve palsy. Onset of symptoms October 16, 2023 of unknown etiology. Underwent botox injection approx 12 days prior to symptoms for long hx of focal dystonia. 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[employer]) Recreational status:walking program, busy w/ son- 22 years old, household dutiesOT Hand/FingersReported bypatient.Hand Dominance:ambidextrous Location:right; radial nerve pain Severity:pain level 8, 4, 2/10; ibuprofen prn pain is decreasing towards end of day Duration:weeks; 2 months Francie West, OTR/L, C[address] [place], [address], [facility] 02/08/2024 13:25:15 5 text/html Risk Assessment AdultReported bypatient.Coronary Artery Disease Risk Assesment:No Family history of coronary artery disease; No personal history of diabetes; No history of peripheral vascular disease, AAA, or carotid disease; No personal history of coronary artery disease Breast Cancer Risk Assessment:Family history of breast cancer; No history of breast cancer or dcis Colon Cancer Risk:No personal history of colon cancer or polyps;Family history of colon polyps or canncer(pat GM); Family Hx=polyp Lung Cancer Risk Assessment:Never smoked; No asbestos exposure (06/22/24) Fracture Risk Assessment:No unexplained fracture (or falls) Cognitive/Behavioral Risk Assessment:No personal history of mental illness; No family history of mental illness Diet:Counseled about appropriate portion size; Counseled about eating a diet low in trans and saturated fats and high in fiber, fruits and vegetables; Counseled about appropriate calcium intake and good dietary sources of calcium.; Counseled about the importance of maintaining a positive calcium balance and taking 1000 iu Vitamin D daily.; Counseled about decreasing carbohydrates; Counseled about decreasing salt in diet; Discussed the value of a Mediterranean diet, and eating more fruits and vegetables Exercise counseling:Discussed the importance of daily physical activity; Discussed the importance of weight bearing exerciseSocial DeterminantsReported bypatient.Living situationno concerns Living situation...do you have problems with the following:no concerns In the past 12 months, have you worried your food would run out before you had money to buy more?no concerns Within the past 12 months, the food just didn't last and you didn't have money to get more.no concerns Has lack of transportation kept you from medical appointments, meetings, work, etc?no In the past 12 months has the [employer], [employer], [employer] or water [employer] threatened to shut off services?no How hard is it for you to pay the very basics like food, house, medical care and housing?no concerns 54 y/o male presents via video visit for annual wellness visit colonoscopy and endoscopy - Endoscopy and colonoscopy 03/24/2024. Internal hemorrhoids, polyps in the cecum, mild diverticulosisEGD - Mucosa suggestive of Sands's esophagus, hiatal hernia, erythema and nodularity in the stomach, normal mucosa in the duodenum.Repeat colonoscopy in 5 years. Endoscopy to be repeated in 2-3 years pending pathology results. up to date on dental and eye exams.regular diet. fruits and vegetables. no soda in diet. alcohol intake is minimalexercise - on his feet at work. enjoys using treadmill. Riki Koroma PA-C [address] [place] [address], [place], [phone], [facility] 06/22/2024 09:25:03
== END 2024-07-06 12:41 | disposition home or self-care (01) ==
LOC: HO.HSMS 07:33
PROVIDERS: PCP Physician Assistant; Visit Provider Psychiatry & Neurology Neurology
DX: G24.9 Dystonia, unspecified (principal); G43.909 Migraine, unspecified, not intractable, without status migrainosus
CPT/HCPCS: 98012; 99214

== ENCOUNTER → 2024-07-06 07:33 | Outpatient (BNVA) | payer OTHER, SELFPAY | PROVIDERS: PCP Physician Assistant; Visit Provider Psychiatry & Neurology Neurology | DX: G24.9 Dystonia, unspecified (principal); G43.909 Migraine, unspecified, not intractable, without status migrainosus ==

== ENCOUNTER 2025-02-08 08:02 | Outpatient (AMB) | payer OTHER, SELFPAY ==
[2025-02-08 07:58] VITALS: BP 110/82; PULSE 77; O2SAT 99; BMI 25.0
--- NOTE | 2025-02-08 07:58 | MHC.OFFVIS ---
Vital Signs 02/08/25 07:58 Height 5 ft 9 in Weight 169 lb BMI 25.0 BP 110/82 Blood Pressure Location Rt brachial Position Sitting Pulse 77 Pulse Source Pulse Oximeter Pulse Oximetry (%) 99 Oxygen Delivery Method Room Air Intake Visit Reasons: follow up Intake Note: Follow up Migraine, unspecified, not intractable, without status migrainosus and Dystonia Parts Coordinator Required: No Accompanied by: Self / Same As Patient Allergies erythromycin base Allergy (Severe, Verified 02/08/25 07:58) Anaphylaxis HPI Comments Details: ? 54y/o male calls for follow up of migraines and focal dystonia .He still reports pain in his forearm but is able to work. His mood is better. He reports a knot or a small tendon swelling in his right lower arm in the median anterior surface . It is tender and the pain shoots up to the shoulder and thumb He is still working and doing Ok except for pain. Migraines are less 1-2 /few mths . History form last visit- 06/2024 months ago -12 days after his botox injection he noticed swelling , weakness, numbness tingling in his right hand. 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 EMG confirmed and he was referred to OT which has helped significantly. he is able to type now . He does not want to continue botox for now though he had a good response - but wants something to help his motor coordination. ??? Side effects including pain , injection site reaction , increased weakness etc were explained in detail. [facility] Medical History Mass of right upper extremity Surgical History H/O colonoscopy History of cataract surgery Social History Alcohol intake: current Alcohol intake frequency: holidays/special occasions only Patient Tobacco Use Status: Never used Tobacco Physical Exam Vital Signs: Last Vital Signs Pulse 77 02/08/25 07:58 BP 110/82 02/08/25 07:58 Pulse Ox 99 02/08/25 07:58 Oxygen Delivery Method Room Air 02/08/25 07:58 BMI result Body Mass Index 25.0 Const Orientation/consciousness: patient oriented x3 Eyes Pupils: Equal, round and reactive pupils present Neuro Other: Right wrist - very mild weakness General: patient oriented x3, gait normal, tone normal and moves all extremities Cranial nerves: Yes Equal, round and reactive pupils present, Yes Bilaterally intact EOM present, Yes Nystagmus not present, Yes Normal facial strength present and Yes Midline tongue present Cognition (Neuro): normal cognition Gait exam (Neuro): Normal gait present Motor exam (neuro): Normal motor muscle tone present throughout Deep tendon reflexes (DTR's): Right triceps reflex intensity grade: 1+, Left triceps reflex intensity grade: 1+, Rt Biceps (C5, C6): 1+, Left biceps reflex intensity grade: 1+, Right brachioradialis reflex intensity grade: 1+, Left brachioradialis reflex intensity grade: 1+, Right patellar reflex intensity grade: 1+ and Left patellar reflex intensity grade: 1+ Assessment & Plan Assessment & Plan (1) Dystonia: Comment: right focal dystonia Code(s): G24.9 - Dystonia, unspecified Category: Medical (2) Mass of right upper extremity: Comment: ? neuroma Code(s): R22.31 - Localized swelling, mass and lump, right upper limb Category: Medical (3) Migraine: Code(s): G43.909 - Migraine, unspecified, not intractable, without status migrainosus Category: Medical Qualifiers: Migraine type: unspecified Status migrainosus presence: without status migrainosus Intractability: not intractable Qualified Code(s): G43.909 - Migraine, unspecified, not intractable, without status migrainosus Plan Urgent MRI Right Arm gabapentin 400mg qhs Cyclobenzaprine 5mg qhs Orders: Orders MR humerus RT wo con Today R22.31 - Localized swelling, mass and lump, right upper limb Coding Level of Care Code Est Pt Level 4 (29350) Complex EM visit Add On G2211 Diagnoses Dystonia G24.9 Mass of right upper extremity R22.31 Migraine without status migrainosus, not intractable, unspecified migraine type G43.909 Migraine type: unspecified Status migrainosus presence: without status migrainosus Intractability: not intractable
== END 2025-02-08 08:42 | disposition home or self-care (01) ==
LOC: HO.HSMS 08:03
PROVIDERS: PCP Physician Assistant; Visit Provider Psychiatry & Neurology Neurology
DX: G24.9 Dystonia, unspecified (principal); R22.31 Localized swelling, mass and lump, right upper limb; G43.909 Migraine, unspecified, not intractable, without status migrainosus
CPT/HCPCS: 99214; G2211

== ENCOUNTER 2025-02-24 10:22 | Outpatient (REF) | payer OTHER, SELFPAY ==
--- NOTE | ~2025-02-24 | MR_ITS ---
Examination: MR Humerus Rt Wo/w Con TECHNIQUE: Multiplanar multisequence imaging was performed through an upper extremity without and with IV contrast, right humerus INDICATION:R22.31 - Localized swelling, mass and lump, right upper limb firm mass in the arm above elbow Prior: None Contrast: 7.5 mL Gadavist FINDINGS: There is a mass in the brachioradialis muscle centered 6 cm cephalad to the radiocapitellar joint. Mass measures 13 x 10 x 9 mm (CC by AP by transverse). On T1 imaging it is isoechoic to very slightly hyperintense to skeletal muscle. On fluid sensitive sequences, the lesion is slightly heterogeneous and mostly hyperintense. With contrast, the mass demonstrates hyperenhancement. The radial nerve passes along the medial margin of the mass, the margin of the mass that is closest to the adjacent humerus. The nerve demonstrate hyperintense signal on fluid sensitive sequences cephalad and caudal to the mass. The mass is 7 mm superficial to the humeral cortex. There is no muscle edema or fatty streaking. Neurovascular bundles are otherwise unremarkable. Bone marrow signal is physiologic. 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 There is enhancing mass within the brachioradialis muscle of the right upper extremity located 6 cm cephalad to the elbow joint. The radial nerve courses along the deep medial surface of the mass. The nerve demonstrates increased signal on fluid sensitive sequences suggesting mild compression neuropathy. The mass is much less likely to represent an intramuscular myxoma or other neoplasm. Electronically signed by: David Cruz MD 02/24/2025 12:08 PM ELENI
== END 2025-02-24 10:23 | disposition home or self-care (01) ==
LOC: HO.MRI 10:22
PROVIDERS: Visit Provider Psychiatry & Neurology Neurology
DX: R22.31 Localized swelling, mass and lump, right upper limb (principal)
CPT/HCPCS: 73220; A9585

== ENCOUNTER → 2025-02-24 10:23 | Outpatient (BNV) | payer OTHER, SELFPAY | PROVIDERS: Visit Provider Radiology Diagnostic Radiology | DX: R22.31 Localized swelling, mass and lump, right upper limb (principal) | CPT/HCPCS: 73220 ==

== ENCOUNTER 2025-03-20 09:51 | Outpatient (AMB) | payer OTHER, SELFPAY ==
[2025-03-20 09:53] VITALS: BP 135/73; PULSE 87; BMI 24.6
--- NOTE | 2025-03-20 09:53 | A.OFFVIS_ITS ---
Vital Signs 03/20/25 09:53 Height 5 ft 9 in Weight 166 lb 6 oz BMI 24.6 BP 135/73 Blood Pressure Location Lt brachial Position Sitting Pulse 87 Intake Visit Reasons: Localized swelling, mass and lump, right upper li Intake Note: Patient presents for an assessment for localized swelling mass and lump right upper limb. Pt c/o: I have a painful tumor on my right arm . Derrick Helper Required: No Accompanied by: Self / Same As Patient Allergies erythromycin base Allergy (Severe, Verified 03/20/25 10:02) Anaphylaxis HPI HPI Localized swelling, mass and lump, right upper li: Details: 54-year-old male referred for a lump on the right arm. He has noticed this for about 3 months. He says that this has occasional painful and tender. Therefore wants this removed He had been diagnosed to have dystonia of the right arm for several years now and he is being followed by the neurology service. He says that he has had this uncontrolled jerking movements of his right arm for years. He says that he noticed the lump itself incidentally. He had an MRI showing what appeared to be a 13 mm nerve sheath tumor adjacent to the radial nerve about 6 cm from the elbow joint. [facility] Medical History Benign nerve sheath neoplasm Mass of right upper extremity Surgical History History of wisdom tooth extraction History of esophagogastroduodenoscopy (EGD) H/O colonoscopy History of cataract surgery Family History Mother Breast cancer Skin cancer Social History Alcohol intake: current Alcohol intake frequency: holidays/special occasions only Patient Tobacco Use Status: Never used Tobacco Review of Systems Const Denies chills and Denies fever(s) Card Denies chest pain, Denies dyspnea and Denies dyspnea on exertion Resp Denies cough, Denies dyspnea and Denies dyspnea on exertion GI Denies hematochezia and Denies change in bowel habits Denies hematuria and Denies difficulty urinating Musc Denies back pain and Denies limited range of motion Neuro Details: Dystonia of the right arm Denies focal weakness and Denies convulsions Psych Denies depression and Denies mood swings Physical Exam Vital Signs: Last Vital Signs Pulse 87 03/20/25 09:53 BP 135/73 03/20/25 09:53 BMI result Body Mass Index 24.6 Const General: comfortable and no acute distress Orientation/consciousness: patient oriented x3 Neck Neck: Yes no lymphadenopathy Resp Auscultation: clear to auscultation bilaterally Cardio Rhythm: regular rhythm GI Palpation (GI): Soft to palpation, nontender and no guarding Neuro General: patient oriented x3 Extrem Other: On the right upper arm laterally above the elbow joint is note of palpable mobile mass about 1.5 cm, slightly tender Assessment & Plan Assessment & Plan (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 I reviewed with him the technique of excision under local anesthesia. I explained the risks including but not limited to bleeding, infections, poor healing, as well as the benefits and alternatives. I also explained to him what to expect postoperatively. He understands and wants to proceed In view of the deep location of the mass along with its estimated to the radial nerve, it is best to do this under anesthesia. I also explained to him risk of injury to the radial nerve including effects on his motor function of the distal arm and fingers. Orders: Referrals General Surgery Procedure Notification D36.10 - Benign neoplasm of peripheral nerves and autonomic nervous system, unspecified Coding Level of Care Code New Pt Level 3 (96501) Diagnoses Benign nerve sheath neoplasm D36.10
== END 2025-03-20 10:30 | disposition home or self-care (01) ==
LOC: HO.HGS 09:52
PROVIDERS: Visit Provider Surgery
DX: D36.10 Benign neoplasm of peripheral nerves and autonomic nervous system, unspecified (principal)
CPT/HCPCS: 99203